=== PATIENT | female | born 1995 | race Caucasian/White ===

== ENCOUNTER 2021-01-01 07:55 | Inpatient (IN) ==
[2021-01-01] MEDS ORDERED: OXYTOCIN 30 UNITS/500 ML BAG IV PRN (08:14)
--- NOTE | 2021-01-01 08:24 | History & Physical Report ---
Date of Service January 01, 2021 Assessment & Plan (1) Pre-eclampsia during in third trimester, antepartum: Plan: 25-year-old G1, P0 with EDC of January 22, at 37 weeks of gestation with preeclampsia without severe features. Scheduled for induction of labor for above, Vital signs stable afebrile, heart rate reassuring, GBS negative, No Covid symptoms, Plan to admit, monitor, labs, cervical ripening with prostaglandins. I discussed the options of intravaginal Cervidil versus p.o. misoprostol. Patient had uncomfortable vaginal exam and prefers oral prostaglandin. Discussed what to expect during induction, All questions were answered. Admission and Anticipated Discharge Date Admission Date: January 01, 2021 History of Present Illness Chief Complaint: Induction Primary Care Provider: NO PCP Patient is a 25-year-old G1, P0 at 37 weeks of gestation who is being admitted for induction of labor for preeclampsia without severe features. Patient had elevated blood pressures and proteinuria which was documented by her 24-hour protein collection. Her blood work labs have been normal. She gets mild headaches off and on but relieved by Tylenol. She denies headache, change in vision, nausea vomiting, epigastric or right upper quadrant pain today. She denies contractions, leakage of fluid, vaginal bleeding. She reports good movements. Her has been otherwise uncomplicated. GBS negative. No Covid symptoms, no recent exposure as she is aware of. 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 She denies any medical problems, surgeries, allergies to medications. SHe takes Zoloft for history of anxiety. She denies smoking, alcohol or drug use. Allergies Allergy/AdvReac Type Severity Reaction Status Date / Time No Known Allergies Allergy Unverified 01/01/21 08:22 Patient History Surgical History [place] teeth removed [employer] History Denies any history of STDs, no history of genital herpes, chlamydia nor gonorrhea. Review of Systems as per Subjective / HPI Physical Exam Constitutional: well developed and well nourished Portable, not in acute distress. Genitourinary: normal external appearance OB Exam Abdomen: + vertex Manual OB Exam: + cervical dilation 1 cm (1-2 CM), + cervical effacement 50% and + station high OB Exam Monitor Tracing: + external uterine monitor used and + category I Results & Data ([facility]) Vital Signs (Past 12 Hours) Vital Signs Pulse BP 01/01/21 08:05 77 134/92 Code Status & VTE Plan VTE Prophylaxis Plan VTE Prophylaxis will be ordered: No
[2021-01-01] MEDS ORDERED: PATIENT'S ALLERGY INFO NEEDS ENTERED SCH (08:30)
[2021-01-01] MEDS ORDERED: miSOPROStoL 50 MCG TAB PO SCH ×2 (09:00→13:30)
[2021-01-01 09:14] LABS: Hematocrit (blood only) 32.8 % (37-47); Hemoglobin 10.9 g/dL (12.0-16.0); Mean Corpuscular Hemoglobin 29.4 pg (25-34); Mean Corpuscular Hgb Conc 33.2 g/dL (32-36); Mean Corpuscular Volume 88.4 fL (80-100); Mean Platelet Volume 11.1 fL (7.4-10.4); Nucleated RBC # (auto) 0.02 K/uL (0-0); Nucleated RBC % (auto) 0.2 %; Platelet Count 186 K/uL (130-400); RDW Coefficient of Variation 12.2 % (11.5-14.5); RDW Standard Deviation 39.1 fL (36.4-46.3); Red Blood Count 3.71 M/uL (4.2-5.4); White Blood Count 11.77 K/uL (4.8-10.8)
[2021-01-01 09:30] LABS: Albumin Level 2.2 gm/dl (3.4-5.0); BUN Creatinine Ratio 11.2 (10-20); Calcium 8.5 mg/dl (8.5-10.1); Creatinine Clr Calc Pharmacy 108.1 ml/min; Est GFR (African American) 118.9 ml/min; Est GFR (Non-African American) 102.6 ml/min; Potassium 3.8 mmol/L (3.5-5.1)
[2021-01-01 09:32] LABS: Albumin Globulin Ratio 0.6 (0.9-2); Bilirubin,Total 0.3 mg/dl (0.2-1); Globulin 3.8 gm/dl (2.5-4.0)
[2021-01-01] MEDS ORDERED: ONDANSETRON INJ 2 MG/ML 2 ML VIAL IV PRN (16:16)
[2021-01-01] MEDS ORDERED: BUTORPHANOL TARTRATE 1 MG/ML VIAL IV PRN (16:16)
--- NOTE | 2021-01-01 16:19 | Obstetrical Progress Note ---
Date of Service January 01, 2021 Assessment & Plan Admission and Anticipated Discharge Date Admission Date: January 01, 2021 Subjective Patient is reevaluated. She received 1 dose of Cytotec at 9:30 AM and started to have contractions. Second dose was not given due to frequent contractions on the monitor She has been feeling mild irregular contractions, back pain every 5 minutes or so. No leakage of fluid or bleeding and she reports good movements. She is hungry and she wants to eat dinner. She denies nausea or vomiting with contractions. heart rate category 1, toco with contractions every 2 to 7 minutes. Patient does not feel all of them. Cervix is 2 cm dilated, 50% is effaced, head at -3 station. Plan for diet and IV pain medication as needed and expectant management for now until contractions will space out. All questions were answered. Results & Data ([facility]) Vital Signs (Past 12 Hours) Vital Signs Temp Pulse Resp BP 01/01/21 14:34 36.8 C 69 20 157/84 H 01/01/21 11:52 36.8 C 65 20 143/86 H 01/01/21 08:11 36.8 C 77 20 134/92 01/01/21 08:05 36.8 C 77 20 134/92
[2021-01-01] MEDS ORDERED: DINOPROSTONE 10 MG INSERT PV ONE (18:31)
[2021-01-01] MEDS ORDERED: SODIUM CHLORIDE 0.9% INJ 10 ML VIAL ONE (23:30)
[2021-01-01] MEDS ORDERED: ePHEDrine sulfate 50 MG/ML AMP ONE (23:30)
[2021-01-01] MEDS ORDERED: fentaNYL citrate 100 MCG/2 ML VIAL ONE (23:30)
[2021-01-01] MEDS ORDERED: fentaNYL 2MCG/ML ROPIVACAINE 1.25MG/ML 100 ML BAG EPI ONE (23:30)
[2021-01-01] MEDS ORDERED: BUPIVACAINE 0.25% 30 ML VIAL ONE (23:30)
[2021-01-01] MEDS: LACTATED RINGER'S 1,000 ML IV PRN (23:37)
[2021-01-01] MEDS ORDERED: NALOXONE HCL 0.4 MG/1 ML VIAL/CARP IV PRN (23:41)
[2021-01-01] MEDS ORDERED: NALBUPHINE HCL INJ 10 MG/ML AMP IV PRN (23:41)
[2021-01-01] MEDS ORDERED: diphenhydrAMINE 50 MG/ML VIAL IV PRN (23:41)
[2021-01-01] MEDS ORDERED: NALOXONE HCL 1 MG in SODIUM CHLORIDE 0.9% 1000ML 1,000 ML IV PRN (23:41)
[2021-01-01] MEDS ORDERED: ePHEDrine sulfate 50 MG/ML AMP IV PRN (23:41)
--- NOTE | 2021-01-01 23:41 | Anesthesiology Consultation ---
Date of Service January 01, 2021 Assessment & Plan ASA ASA2 Proposed Anesthesia Anesthesia Type: Labor Epidural Risk / Benefits Reviewed With: PT / POA / Parent / Guardian, Accepts Plan and Informed Consent Obtained History Height/Weight Height: 5 ft 2 in Weight: 84.822 kg Allergies Allergy/AdvReac Type Severity Reaction Status Date / Time No Known Allergies Allergy Unverified 01/01/21 09:38 Medications Home Medications Medication Instructions Recorded Confirmed Last Taken prenat.vits,elizabeth,[id number] 1 tab PO DAILY 01/01/21 01/01/21 Unknown sertraline 50 mg tablet (Zoloft) 50 mg PO DAILY 01/01/21 01/01/21 01/01/21 07:00 Active Medications Generic Name Dose Route Start Last Admin Trade Name Freq PRN Reason Stop Dose Admin Lactated Ringer's 1,000 mls @ 125 mls/hr 01/01/21 08:14 01/01/21 23:37 Lr IV 01/03/21 08:13 999 mls/hr .Q8H PRN Administration L&D Protocol Protocol Misoprostol 50 mcg 01/01/21 13:30 01/01/21 16:55 Misoprostol 50 Mcg Tab PO 01/31/21 13:29 Not Given Q4H SELENA Ropivacaine 100 ml 01/01/21 23:41 01/02/21 00:10 Fentanyl 2mcg/Ml Ropivacaine 1.25mg/Ml 100 Ml Bag EPI 01/02/21 23:40 100 ml PRN PRN Administration Pain R/T Labor Protocol Exercise / Class Metabolic Activity II 4-5 Yardwork/Stairs/Walk up hill Past Surgical History Surgical History [place] teeth removed Past Anesthesia History No Hx of Anesthesia Complications and No Family Hx of Anesthesia Complications History of PONV No Hx of PONV and No Hx of Motion Sickness Social History Smoking Status: Never smoker Hx Alcohol Use: No Hx Substance Use: No Review of Systems denies fever/cough/ colds/ chest pain/ SOB/ JOHN denies JOHN Physical Exam Vital Signs Last Vital Signs Temp 36.4 C L 01/01/21 23:06 Pulse 75 01/02/21 00:12 Resp 18 01/01/21 23:06 BP 136/85 01/02/21 00:12 Pulse Ox 99 01/02/21 00:10 ENMT Mouth: no TMJ abnormality and no dentition abnormality Thyromental Distance: > or= 3.5 Finger Breadths Mallampati Class: II Neck neck extension not limited Respiratory normal respiratory effort; no respiratory distress Auscultation: lungs clear to auscultation bilaterally Cardiovascular Rate/Rhythm: regular rate and regular rhythm Neurologic moves all extremities Psychiatric Orientation: alert and oriented x 3 Testing Laboratory Results 01/01/21 08:57 01/01/21 08:57 Blood Type B Positive 01/01/21 08:57 Antibody Screen NEGATIVE 01/01/21 08:57
[2021-01-02] MEDS: fentaNYL 2MCG/ML ROPIVACAINE 1.25MG/ML 100 ML BAG EPI PRN ×4 (00:10→22:06)
[2021-01-02] MEDS: LACTATED RINGER'S 1,000 ML IV PRN ×5 (02:33→23:42)
[2021-01-02] MEDS ORDERED: NURSING L&D Epidural Breakthrough Pain Update ONE (05:11)
[2021-01-02] MEDS ORDERED: ePHEDrine sulfate 50 MG/ML AMP ONE (05:52)
[2021-01-02] MEDS ORDERED: SODIUM CHLORIDE 0.9% INJ 10 ML VIAL ONE ×2 (05:52→23:16)
[2021-01-02] MEDS ORDERED: fentaNYL citrate 100 MCG/2 ML VIAL ONE (05:53)
[2021-01-02] MEDS ORDERED: fentaNYL 2MCG/ML ROPIVACAINE 1.25MG/ML 100 ML BAG EPI ONE (05:53)
[2021-01-02] MEDS ORDERED: BUPIVACAINE 0.25% 30 ML VIAL ONE ×2 (05:53→23:16)
--- NOTE | 2021-01-02 06:25 | Communication Note ---
Date of Service: January 02, 2021 asked to reevaluate patient. patient diffusely painful, but initially had relief. pt early in process so decided to replace epidural. time out complete d. sterile prep/drape/gloves/mask. l3-l4 idenified. 1% lido infilrated. 17 gauge touey advanced to SADAF to air at 5 cm. easy caheter thread to 12 cm. test dose of 2% lido with epi 3 cc given. negative IV/IT. catheter taped. pt bolused with a divided dose of 100 mcg fentanyl and 5 cc of 0.25% bupivicaine. vss.
[2021-01-02] MEDS ORDERED: OXYTOCIN 30 UNITS/500 ML BAG IV PRN (07:45)
--- NOTE | 2021-01-02 08:01 | Obstetrical Progress Note ---
Date of Service January 02, 2021 Assessment & Plan Admission and Anticipated Discharge Date Admission Date: January 01, 2021 Subjective Patient is reevaluated. She received epidural twice and now comfortable. VSS Afebrile, VE: Cervidil is removed, cervix is 3 xm/ 50%/ -3, tight bulgin bag FHR categ I, [place]: ctxs q 2-5 min Will start Oxytocin per protocol Continue to monitor Signed out to Dr Mcghee Results & Data ([facility]) Vital Signs (Past 12 Hours) Vital Signs Temp Pulse Resp BP Pulse Ox 01/02/21 07:50 84 100 01/02/21 07:45 88 100 01/02/21 07:40 92 H 96 01/02/21 07:35 89 100 01/02/21 07:30 102 H 98 01/02/21 07:27 82 121/66 01/02/21 07:25 81 98 01/02/21 07:20 78 97 01/02/21 07:15 78 99 01/02/21 07:13 78 122/70 01/02/21 07:12 80 125/73 01/02/21 07:10 79 99 01/02/21 07:05 86 100 01/02/21 07:01 90 124/72 01/02/21 07:00 37.0 C 82 20 98 01/02/21 06:57 76 124/71 01/02/21 06:55 76 98 01/02/21 06:50 80 99 01/02/21 06:45 90 99 01/02/21 06:43 88 137/72 01/02/21 06:40 82 100 01/02/21 06:35 88 100 01/02/21 06:30 91 H 99 01/02/21 06:26 85 123/64 01/02/21 06:25 85 100 01/02/21 06:24 90 125/75 01/02/21 06:22 86 124/67 01/02/21 06:20 84 129/66 99 01/02/21 06:18 100 H 116/64 01/02/21 06:16 85 129/72 01/02/21 06:15 90 98 01/02/21 06:14 81 134/77 01/02/21 06:12 80 133/76 01/02/21 06:11 20 01/02/21 06:10 103 H 99 01/02/21 06:05 78 97 01/02/21 06:00 123 H 98 01/02/21 05:55 101 H 86 L 01/02/21 05:50 86 98 01/02/21 05:45 90 98 01/02/21 05:44 85 146/88 H 01/02/21 05:40 85 100 01/02/21 05:35 88 99 01/02/21 05:30 90 142/78 H 100 01/02/21 05:25 96 H 99 01/02/21 05:20 85 99 01/02/21 05:17 78 161/89 H 01/02/21 05:15 86 100 01/02/21 05:10 87 99 01/02/21 05:05 76 97 01/02/21 05:01 86 171/97 H 01/02/21 05:00 88 100 01/02/21 04:58 109 H 93 01/02/21 04:55 82 99 01/02/21 04:50 72 98 01/02/21 04:45 72 146/84 H 98 01/02/21 04:40 75 98 01/02/21 04:36 91 H 93 01/02/21 04:35 80 96 01/02/21 04:31 69 151/90 H 01/02/21 04:30 72 18 98 01/02/21 04:25 73 98 01/02/21 04:22 36.8 C 01/02/21 04:20 72 97 01/02/21 04:15 70 135/83 96 01/02/21 04:10 70 95 01/02/21 04:05 70 96 01/02/21 04:00 69 18 134/81 96 01/02/21 03:55 68 97 01/02/21 03:50 71 97 01/02/21 03:48 85 93 01/02/21 03:45 73 140/66 97 01/02/21 03:40 74 96 01/02/21 03:35 74 96 01/02/21 03:30 76 141/63 H 95 01/02/21 03:25 77 95 01/02/21 03:20 75 96 01/02/21 03:16 73 143/65 H 01/02/21 03:15 74 96 01/02/21 03:10 75 95 01/02/21 03:05 74 96 01/02/21 03:02 71 144/66 H 01/02/21 03:00 74 18 96 01/02/21 02:55 74 96 01/02/21 02:50 74 96 01/02/21 02:46 71 144/66 H 01/02/21 02:45 72 98 01/02/21 02:40 72 98 01/02/21 02:37 98 H 93 01/02/21 02:35 80 98 01/02/21 02:30 73 18 97 01/02/21 02:29 70 117/61 01/02/21 02:25 71 97 01/02/21 02:20 73 96 01/02/21 02:15 74 96 01/02/21 02:14 73 124/62 01/02/21 02:10 93 H 96 01/02/21 02:05 76 96 01/02/21 02:00 80 16 96 01/02/21 01:59 79 130/60 01/02/21 01:55 75 95 01/02/21 01:50 75 96 01/02/21 01:45 78 96 01/02/21 01:44 76 125/58 L 01/02/21 01:40 74 95 01/02/21 01:35 76 96 01/02/21 01:31 72 126/62 01/02/21 01:30 72 16 97 01/02/21 01:25 74 97 01/02/21 01:20 74 98 01/02/21 01:15 77 98 01/02/21 01:14 76 132/76 01/02/21 01:10 74 98 01/02/21 01:05 77 96 01/02/21 01:00 71 131/80 97 01/02/21 00:55 71 97 01/02/21 00:52 36.8 C 18 01/02/21 00:50 70 98 01/02/21 00:45 68 99 01/02/21 00:44 68 137/83 01/02/21 00:40 80 97 01/02/21 00:35 71 98 01/02/21 00:30 74 18 135/84 98 01/02/21 00:25 72 18 97 01/02/21 00:20 78 18 97 01/02/21 00:15 77 18 98 01/02/21 00:14 84 133/86 01/02/21 00:12 75 136/85 01/02/21 00:10 78 18 139/85 99 01/02/21 00:08 77 147/89 H 01/02/21 00:07 18 01/02/21 00:06 77 145/85 H 01/02/21 00:05 76 100 01/02/21 00:00 64 100 01/01/21 23:57 96 H 93 01/01/21 23:55 82 100 01/01/21 23:50 78 99 01/01/21 23:45 68 97 01/01/21 23:16 67 145/85 H 01/01/21 23:06 36.4 C L 18 01/01/21 22:59 66 160/98 H
--- NOTE | 2021-01-02 10:22 | Progress Note ---
Date of Service January 02, 2021 Assessment & Plan Admission and Anticipated Discharge Date Admission Date: January 01, 2021 Subjective Met pt and spouse FHR; CAT1 Pt was seen by Dr Suárez and nicole Navas Results & Data ([facility]) Vital Signs (Past 12 Hours) Vital Signs Temp Pulse Resp BP Pulse Ox 01/02/21 10:15 78 96 01/02/21 10:12 77 139/80 01/02/21 10:10 80 95 01/02/21 10:05 81 97 01/02/21 10:01 94 H 94 01/02/21 10:00 78 96 01/02/21 09:57 81 141/81 H 01/02/21 09:55 82 96 01/02/21 09:50 95 H 97 01/02/21 09:45 79 96 01/02/21 09:42 80 133/80 01/02/21 09:40 80 97 01/02/21 09:35 78 97 01/02/21 09:30 93 H 97 01/02/21 09:27 78 136/84 01/02/21 09:25 85 97 01/02/21 09:20 81 97 01/02/21 09:15 79 97 01/02/21 09:13 82 134/79 01/02/21 09:10 82 98 01/02/21 09:05 84 99 01/02/21 09:00 75 20 97 01/02/21 08:57 78 135/83 01/02/21 08:55 77 97 01/02/21 08:50 77 98 01/02/21 08:45 78 98 01/02/21 08:43 73 145/83 H 01/02/21 08:40 79 99 01/02/21 08:35 86 100 01/02/21 08:30 94 H 100 01/02/21 08:28 90 139/87 01/02/21 08:25 93 H 99 01/02/21 08:20 87 99 01/02/21 08:15 96 H 100 01/02/21 08:12 85 130/83 01/02/21 08:10 82 99 01/02/21 08:05 82 100 01/02/21 08:00 77 18 99 01/02/21 07:58 83 137/78 01/02/21 07:55 88 100 01/02/21 07:50 84 100 01/02/21 07:45 88 100 01/02/21 07:40 92 H 96 01/02/21 07:35 89 100 01/02/21 07:30 102 H 20 98 01/02/21 07:27 82 121/66 01/02/21 07:25 81 98 01/02/21 07:20 78 97 01/02/21 07:15 78 99 01/02/21 07:13 78 122/70 01/02/21 07:12 80 125/73 01/02/21 07:10 79 99 01/02/21 07:05 86 100 01/02/21 07:01 90 124/72 01/02/21 07:00 37.0 C 82 20 98 01/02/21 06:57 76 124/71 01/02/21 06:55 76 98 01/02/21 06:50 80 99 01/02/21 06:45 90 99 01/02/21 06:43 88 137/72 01/02/21 06:40 82 100 01/02/21 06:35 88 100 01/02/21 06:30 91 H 99 01/02/21 06:26 85 123/64 01/02/21 06:25 85 100 01/02/21 06:24 90 125/75 01/02/21 06:22 86 124/67 01/02/21 06:20 84 129/66 99 01/02/21 06:18 100 H 116/64 01/02/21 06:16 85 129/72 01/02/21 06:15 90 98 01/02/21 06:14 81 134/77 01/02/21 06:12 80 133/76 01/02/21 06:11 20 01/02/21 06:10 103 H 99 01/02/21 06:05 78 97 01/02/21 06:00 123 H 98 01/02/21 05:55 101 H 86 L 01/02/21 05:50 86 98 01/02/21 05:45 90 98 01/02/21 05:44 85 146/88 H 01/02/21 05:40 85 100 01/02/21 05:35 88 99 01/02/21 05:30 90 142/78 H 100 01/02/21 05:25 96 H 99 01/02/21 05:20 85 99 01/02/21 05:17 78 161/89 H 01/02/21 05:15 86 100 01/02/21 05:10 87 99 01/02/21 05:05 76 97 01/02/21 05:01 86 171/97 H 01/02/21 05:00 88 100 01/02/21 04:58 109 H 93 01/02/21 04:55 82 99 01/02/21 04:50 72 98 01/02/21 04:45 72 146/84 H 98 01/02/21 04:40 75 98 01/02/21 04:36 91 H 93 01/02/21 04:35 80 96 01/02/21 04:31 69 151/90 H 01/02/21 04:30 72 18 98 01/02/21 04:25 73 98 01/02/21 04:22 36.8 C 01/02/21 04:20 72 97 01/02/21 04:15 70 135/83 96 01/02/21 04:10 70 95 01/02/21 04:05 70 96 01/02/21 04:00 69 18 134/81 96 01/02/21 03:55 68 97 01/02/21 03:50 71 97 01/02/21 03:48 85 93 01/02/21 03:45 73 140/66 97 01/02/21 03:40 74 96 01/02/21 03:35 74 96 01/02/21 03:30 76 141/63 H 95 01/02/21 03:25 77 95 01/02/21 03:20 75 96 01/02/21 03:16 73 143/65 H 01/02/21 03:15 74 96 01/02/21 03:10 75 95 01/02/21 03:05 74 96 01/02/21 03:02 71 144/66 H 01/02/21 03:00 74 18 96 01/02/21 02:55 74 96 01/02/21 02:50 74 96 01/02/21 02:46 71 144/66 H 01/02/21 02:45 72 98 01/02/21 02:40 72 98 01/02/21 02:37 98 H 93 01/02/21 02:35 80 98 01/02/21 02:30 73 18 97 01/02/21 02:29 70 117/61 01/02/21 02:25 71 97 01/02/21 02:20 73 96 01/02/21 02:15 74 96 01/02/21 02:14 73 124/62 01/02/21 02:10 93 H 96 01/02/21 02:05 76 96 01/02/21 02:00 80 16 96 01/02/21 01:59 79 130/60 01/02/21 01:55 75 95 01/02/21 01:50 75 96 01/02/21 01:45 78 96 01/02/21 01:44 76 125/58 L 01/02/21 01:40 74 95 01/02/21 01:35 76 96 01/02/21 01:31 72 126/62 01/02/21 01:30 72 16 97 01/02/21 01:25 74 97 01/02/21 01:20 74 98 01/02/21 01:15 77 98 01/02/21 01:14 76 132/76 01/02/21 01:10 74 98 01/02/21 01:05 77 96 01/02/21 01:00 71 131/80 97 01/02/21 00:55 71 97 01/02/21 00:52 36.8 C 18 01/02/21 00:50 70 98 01/02/21 00:45 68 99 01/02/21 00:44 68 137/83 01/02/21 00:40 80 97 01/02/21 00:35 71 98 01/02/21 00:30 74 18 135/84 98 01/02/21 00:25 72 18 97 01/02/21 00:20 78 18 97 01/02/21 00:15 77 18 98 01/02/21 00:14 84 133/86 01/02/21 00:12 75 136/85 01/02/21 00:10 78 18 139/85 99 01/02/21 00:08 77 147/89 H 01/02/21 00:07 18 01/02/21 00:06 77 145/85 H 01/02/21 00:05 76 100 01/02/21 00:00 64 100 01/01/21 23:57 96 H 93 01/01/21 23:55 82 100 01/01/21 23:50 78 99 01/01/21 23:45 68 97 01/01/21 23:16 67 145/85 H 01/01/21 23:06 36.4 C L 18 01/01/21 22:59 66 160/98 H
[2021-01-02] MEDS ORDERED: ACETAMINOPHEN 500 MG TAB PO ONE (16:09)
--- NOTE | 2021-01-02 18:59 | Progress Note ---
Date of Service January 02, 2021 Assessment & Plan Admission and Anticipated Discharge Date Admission Date: January 01, 2021 Subjective Pt doing well FHR; CAT1 Ctx irregular Pit. 4Mu VE 4/50.-2 AROM with scalp electrode IUPC placed Results [facility]) Vital Signs (Past 12 Hours) Vital Signs Temp Pulse Resp BP Pulse Ox 01/02/21 18:55 80 96 01/02/21 18:50 87 96 01/02/21 18:45 93 H 95 01/02/21 18:40 96 H 95 01/02/21 18:35 100 H 95 01/02/21 18:30 78 94 01/02/21 18:27 76 122/63 01/02/21 18:25 77 95 01/02/21 18:20 77 96 01/02/21 18:15 79 94 01/02/21 18:12 83 121/62 01/02/21 18:10 78 95 01/02/21 18:05 78 94 01/02/21 18:00 80 95 01/02/21 17:57 75 121/62 01/02/21 17:55 79 94 01/02/21 17:50 80 94 01/02/21 17:45 79 94 01/02/21 17:42 77 123/66 01/02/21 17:40 78 95 01/02/21 17:35 79 94 01/02/21 17:30 76 20 95 01/02/21 17:27 75 124/68 01/02/21 17:25 77 95 01/02/21 17:20 76 96 01/02/21 17:15 76 96 01/02/21 17:12 74 128/70 01/02/21 17:10 81 96 01/02/21 17:05 73 96 01/02/21 17:00 75 20 96 01/02/21 16:57 71 134/74 01/02/21 16:55 76 96 01/02/21 16:50 69 97 01/02/21 16:45 88 99 01/02/21 16:42 75 137/83 01/02/21 16:40 79 98 01/02/21 16:35 83 97 01/02/21 16:30 87 20 95 01/02/21 16:27 73 145/82 H 01/02/21 16:25 83 98 01/02/21 16:20 75 99 01/02/21 16:15 80 99 01/02/21 16:12 82 154/81 H 01/02/21 16:11 88 88 L 01/02/21 16:10 85 93 01/02/21 16:05 77 159/91 H 97 01/02/21 16:00 86 20 99 01/02/21 15:58 72 167/93 H 01/02/21 15:55 73 97 01/02/21 15:50 76 97 01/02/21 15:45 80 97 01/02/21 15:42 73 149/84 H 01/02/21 15:40 83 97 01/02/21 15:35 76 97 01/02/21 15:30 78 18 98 01/02/21 15:25 96 H 95 01/02/21 15:20 79 98 01/02/21 15:15 97 H 97 01/02/21 15:12 73 142/65 H 01/02/21 15:10 76 96 01/02/21 15:05 74 96 01/02/21 15:00 74 20 96 01/02/21 14:57 74 142/65 H 01/02/21 14:55 75 96 01/02/21 14:50 74 96 01/02/21 14:45 75 96 01/02/21 14:42 74 148/67 H 01/02/21 14:40 75 95 01/02/21 14:35 75 96 01/02/21 14:30 75 20 97 01/02/21 14:28 80 150/67 H 01/02/21 14:25 80 97 01/02/21 14:20 77 96 01/02/21 14:15 84 98 01/02/21 14:13 76 151/67 H 01/02/21 14:10 78 97 01/02/21 14:05 90 18 98 01/02/21 14:00 75 18 96 01/02/21 13:57 77 133/75 01/02/21 13:55 79 97 01/02/21 13:50 80 96 01/02/21 13:45 77 96 01/02/21 13:42 75 132/73 01/02/21 13:40 77 95 01/02/21 13:35 77 94 01/02/21 13:34 79 94 01/02/21 13:30 78 95 01/02/21 13:27 75 127/71 01/02/21 13:25 80 95 01/02/21 13:23 78 94 01/02/21 13:20 77 95 01/02/21 13:15 76 96 01/02/21 13:13 75 130/73 01/02/21 13:10 78 96 01/02/21 13:05 75 97 01/02/21 13:00 76 20 96 01/02/21 12:58 76 133/69 01/02/21 12:55 77 97 01/02/21 12:50 78 97 01/02/21 12:45 78 97 01/02/21 12:42 83 144/93 H 01/02/21 12:40 80 98 01/02/21 12:35 74 98 01/02/21 12:30 75 98 01/02/21 12:27 75 144/83 H 01/02/21 12:25 83 98 01/02/21 12:20 87 98 01/02/21 12:15 98 H 99 01/02/21 12:12 169 H 146/83 H 89 L 01/02/21 12:10 95 H 98 01/02/21 12:05 91 H 98 01/02/21 12:00 94 H 98 01/02/21 11:55 90 97 01/02/21 11:50 80 98 01/02/21 11:45 83 98 01/02/21 11:42 79 140/80 01/02/21 11:40 81 98 01/02/21 11:35 76 96 01/02/21 11:30 89 96 01/02/21 11:27 76 129/72 01/02/21 11:25 77 97 01/02/21 11:20 94 H 97 01/02/21 11:15 76 96 01/02/21 11:12 79 124/66 01/02/21 11:10 80 96 01/02/21 11:05 80 97 01/02/21 11:00 36.9 C 90 20 97 01/02/21 10:58 84 136/92 01/02/21 10:55 81 96 01/02/21 10:50 80 95 01/02/21 10:45 83 95 01/02/21 10:42 78 141/73 H 01/02/21 10:40 82 95 01/02/21 10:36 82 94 01/02/21 10:35 82 95 01/02/21 10:30 81 95 01/02/21 10:29 79 94 01/02/21 10:27 78 139/73 01/02/21 10:25 81 95 01/02/21 10:24 79 94 01/02/21 10:20 81 95 01/02/21 10:15 78 96 01/02/21 10:12 77 139/80 01/02/21 10:10 80 95 01/02/21 10:05 81 97 01/02/21 10:01 94 H 94 01/02/21 10:00 78 96 01/02/21 09:57 81 141/81 H 01/02/21 09:55 82 96 01/02/21 09:50 95 H 97 01/02/21 09:45 79 96 01/02/21 09:42 80 133/80 01/02/21 09:40 80 97 01/02/21 09:35 78 97 01/02/21 09:30 93 H 97 01/02/21 09:27 78 136/84 01/02/21 09:25 85 97 01/02/21 09:20 81 97 01/02/21 09:15 79 97 01/02/21 09:13 82 134/79 01/02/21 09:10 82 98 01/02/21 09:05 84 99 01/02/21 09:00 75 20 97 01/02/21 08:57 78 135/83 01/02/21 08:55 77 97 01/02/21 08:50 77 98 01/02/21 08:45 78 98 01/02/21 08:43 73 145/83 H 01/02/21 08:40 79 99 01/02/21 08:35 86 100 01/02/21 08:30 94 H 100 01/02/21 08:28 90 139/87 01/02/21 08:25 93 H 99 01/02/21 08:20 87 99 01/02/21 08:15 96 H 100 01/02/21 08:12 85 130/83 01/02/21 08:10 82 99 01/02/21 08:05 82 100 01/02/21 08:00 77 18 99 01/02/21 07:58 83 137/78 01/02/21 07:55 88 100 01/02/21 07:50 84 100 01/02/21 07:45 88 100 01/02/21 07:40 92 H 96 01/02/21 07:35 89 100 01/02/21 07:30 102 H 20 98 01/02/21 07:27 82 121/66 01/02/21 07:25 81 98 01/02/21 07:20 78 97 01/02/21 07:15 78 99 01/02/21 07:13 78 122/70 01/02/21 07:12 80 125/73 01/02/21 07:10 79 99 01/02/21 07:05 86 100 01/02/21 07:01 90 124/72 01/02/21 07:00 37.0 C 82 20 98
[2021-01-02] MEDS ORDERED: fentaNYL 2MCG/ML ROPIVACAINE 1.25MG/ML 100 ML BAG EPI PRN (23:34)
--- NOTE | 2021-01-03 00:08 | Progress Note ---
Date of Service January 03, 2021 Assessment & Plan Admission and Anticipated Discharge Date Admission Date: January 01, 2021 Subjective FHR; CAT1 VE; 8/75/-1 Ctx 2-3cm Pitocin ; 8mu Analgesia dosing adjsuted BP was in 160/90's. last BP was 140/80 will continue to monitor BP Results & Data ([facility]) Vital Signs (Past 12 Hours) Vital Signs Temp Pulse Resp BP Pulse Ox 01/03/21 00:00 83 94 01/02/21 23:55 88 95 01/02/21 23:53 93 H 140/87 01/02/21 23:50 96 H 97 01/02/21 23:47 76 161/92 H 01/02/21 23:45 80 94 01/02/21 23:42 85 160/109 H 01/02/21 23:40 79 95 01/02/21 23:38 76 159/92 H 01/02/21 23:35 79 95 01/02/21 23:32 78 152/95 H 01/02/21 23:30 81 98 01/02/21 23:27 83 171/97 H 01/02/21 23:25 86 162/82 H 96 01/02/21 23:20 100 H 95 01/02/21 23:15 91 H 97 01/02/21 23:13 88 177/87 H 01/02/21 23:10 82 95 01/02/21 23:05 92 H 97 01/02/21 23:00 86 98 01/02/21 22:59 37.2 C 20 01/02/21 22:55 86 96 01/02/21 22:50 89 96 01/02/21 22:45 89 97 01/02/21 22:40 79 98 01/02/21 22:35 91 H 95 01/02/21 22:30 88 98 01/02/21 22:27 85 161/94 H 01/02/21 22:25 88 98 01/02/21 22:20 85 97 01/02/21 22:15 88 98 01/02/21 22:12 78 168/94 H 01/02/21 22:10 94 H 98 01/02/21 22:08 16 01/02/21 22:05 84 98 01/02/21 22:00 107 H 98 01/02/21 21:55 82 96 01/02/21 21:50 89 99 01/02/21 21:45 80 98 01/02/21 21:40 81 99 01/02/21 21:35 91 H 98 01/02/21 21:30 79 98 01/02/21 21:27 79 138/76 01/02/21 21:25 76 98 01/02/21 21:20 75 98 01/02/21 21:15 74 98 01/02/21 21:12 75 143/81 H 01/02/21 21:10 79 97 01/02/21 21:05 88 97 01/02/21 21:00 77 97 01/02/21 20:59 36.8 C 76 18 143/83 H 01/02/21 20:55 84 96 01/02/21 20:50 78 97 01/02/21 20:45 75 97 01/02/21 20:44 76 144/86 H 01/02/21 20:42 75 144/87 H 01/02/21 20:40 74 98 01/02/21 20:35 89 96 01/02/21 20:34 18 01/02/21 20:30 88 97 01/02/21 20:27 77 156/94 H 01/02/21 20:25 86 97 01/02/21 20:20 78 97 01/02/21 20:15 80 97 01/02/21 20:12 103 H 139/95 01/02/21 20:10 106 H 96 01/02/21 20:05 101 H 96 01/02/21 20:00 84 97 01/02/21 19:57 88 148/98 H 01/02/21 19:55 83 96 01/02/21 19:50 80 96 01/02/21 19:45 80 95 01/02/21 19:43 76 137/76 01/02/21 19:40 77 96 01/02/21 19:35 77 97 01/02/21 19:30 73 95 01/02/21 19:28 75 141/77 H 01/02/21 19:25 85 96 01/02/21 19:20 81 96 01/02/21 19:19 37.2 C 18 01/02/21 19:15 78 94 01/02/21 19:13 81 150/90 H 01/02/21 19:10 76 94 01/02/21 19:05 80 95 01/02/21 19:00 91 H 18 94 01/02/21 18:58 80 139/87 01/02/21 18:55 80 96 01/02/21 18:50 87 96 01/02/21 18:45 93 H 95 01/02/21 18:40 96 H 95 01/02/21 18:35 100 H 95 01/02/21 18:30 78 18 94 01/02/21 18:27 76 122/63 01/02/21 18:25 77 95 01/02/21 18:20 77 96 01/02/21 18:15 79 94 01/02/21 18:12 83 121/62 01/02/21 18:10 78 95 01/02/21 18:05 78 94 01/02/21 18:00 80 16 95 01/02/21 17:57 75 121/62 01/02/21 17:55 79 94 01/02/21 17:50 80 94 01/02/21 17:45 79 94 01/02/21 17:42 77 123/66 01/02/21 17:40 78 95 01/02/21 17:35 79 94 01/02/21 17:30 76 20 95 01/02/21 17:27 75 124/68 01/02/21 17:25 77 95 01/02/21 17:20 76 96 01/02/21 17:15 76 96 01/02/21 17:12 74 128/70 01/02/21 17:10 81 96 01/02/21 17:05 73 96 01/02/21 17:00 75 20 96 01/02/21 16:57 71 134/74 01/02/21 16:55 76 96 01/02/21 16:50 69 97 01/02/21 16:45 88 99 01/02/21 16:42 75 137/83 01/02/21 16:40 79 98 01/02/21 16:35 83 97 01/02/21 16:30 87 20 95 01/02/21 16:27 73 145/82 H 01/02/21 16:25 83 98 01/02/21 16:20 75 99 01/02/21 16:15 80 99 01/02/21 16:12 82 154/81 H 01/02/21 16:11 88 88 L 01/02/21 16:10 85 93 01/02/21 16:05 77 159/91 H 97 01/02/21 16:00 86 20 99 01/02/21 15:58 72 167/93 H 01/02/21 15:55 73 97 01/02/21 15:50 76 97 01/02/21 15:45 80 97 01/02/21 15:42 73 149/84 H 01/02/21 15:40 83 97 01/02/21 15:35 76 97 01/02/21 15:30 78 18 98 01/02/21 15:25 96 H 95 01/02/21 15:20 79 98 01/02/21 15:15 97 H 97 01/02/21 15:12 73 142/65 H 01/02/21 15:10 76 96 01/02/21 15:05 74 96 01/02/21 15:00 74 20 96 01/02/21 14:57 74 142/65 H 01/02/21 14:55 75 96 01/02/21 14:50 74 96 01/02/21 14:45 75 96 01/02/21 14:42 74 148/67 H 01/02/21 14:40 75 95 01/02/21 14:35 75 96 01/02/21 14:30 75 20 97 01/02/21 14:28 80 150/67 H 01/02/21 14:25 80 97 01/02/21 14:20 77 96 01/02/21 14:15 84 98 01/02/21 14:13 76 151/67 H 01/02/21 14:10 78 97 01/02/21 14:05 90 18 98 01/02/21 14:00 75 18 96 01/02/21 13:57 77 133/75 01/02/21 13:55 79 97 01/02/21 13:50 80 96 01/02/21 13:45 77 96 01/02/21 13:42 75 132/73 01/02/21 13:40 77 95 01/02/21 13:35 77 94 01/02/21 13:34 79 94 01/02/21 13:30 78 95 01/02/21 13:27 75 127/71 01/02/21 13:25 80 95 01/02/21 13:23 78 94 01/02/21 13:20 77 95 01/02/21 13:15 76 96 01/02/21 13:13 75 130/73 01/02/21 13:10 78 96 01/02/21 13:05 75 97 01/02/21 13:00 76 20 96 01/02/21 12:58 76 133/69 01/02/21 12:55 77 97 01/02/21 12:50 78 97 01/02/21 12:45 78 97 01/02/21 12:42 83 144/93 H 01/02/21 12:40 80 98 01/02/21 12:35 74 98 01/02/21 12:30 75 98 01/02/21 12:27 75 144/83 H 01/02/21 12:25 83 98 01/02/21 12:20 87 98 01/02/21 12:15 98 H 99 01/02/21 12:12 169 H 146/83 H 89 L 01/02/21 12:10 95 H 98
[2021-01-03] MEDS ORDERED: GENTAMICIN CONSULT ACTIVE PRN (01:00)
[2021-01-03] MEDS ORDERED: LACTATED RINGER'S 500 ML IV ONE (01:05)
--- NOTE | 2021-01-03 01:09 | Progress Note ---
Date of Service January 03, 2021 Assessment & Plan Admission and Anticipated Discharge Date Admission Date: January 01, 2021 Subjective Nurse report Temp 101 FHR; 160's Plan IV bolus Amp and Gent started Results & Data ([facility]) Vital Signs (Past 12 Hours) Vital Signs Temp Pulse Resp BP Pulse Ox 01/03/21 01:05 91 H 96 01/03/21 01:00 104 H 94 01/03/21 00:55 90 98 01/03/21 00:50 38.4 C H 96 H 18 98 01/03/21 00:45 91 H 95 01/03/21 00:41 82 150/70 H 01/03/21 00:40 89 96 01/03/21 00:35 85 97 01/03/21 00:30 83 149/69 H 97 01/03/21 00:25 95 H 96 01/03/21 00:20 81 94 01/03/21 00:15 86 95 01/03/21 00:12 89 149/83 H 01/03/21 00:10 80 94 01/03/21 00:05 91 H 95 01/03/21 00:00 83 94 01/02/21 23:55 88 95 01/02/21 23:53 93 H 140/87 01/02/21 23:50 96 H 97 01/02/21 23:47 76 161/92 H 01/02/21 23:45 80 94 01/02/21 23:42 85 160/109 H 01/02/21 23:40 79 95 01/02/21 23:38 76 159/92 H 01/02/21 23:35 79 95 01/02/21 23:32 78 152/95 H 01/02/21 23:30 81 98 01/02/21 23:27 83 171/97 H 01/02/21 23:25 86 162/82 H 96 01/02/21 23:20 100 H 95 01/02/21 23:15 91 H 97 01/02/21 23:13 88 177/87 H 01/02/21 23:10 82 95 01/02/21 23:05 92 H 97 01/02/21 23:00 86 98 01/02/21 22:59 37.2 C 20 01/02/21 22:55 86 96 01/02/21 22:50 89 96 01/02/21 22:45 89 97 01/02/21 22:40 79 98 01/02/21 22:35 91 H 95 01/02/21 22:30 88 98 01/02/21 22:27 85 161/94 H 01/02/21 22:25 88 98 01/02/21 22:20 85 97 01/02/21 22:15 88 98 01/02/21 22:12 78 168/94 H 01/02/21 22:10 94 H 98 01/02/21 22:08 16 01/02/21 22:05 84 98 01/02/21 22:00 107 H 98 01/02/21 21:55 82 96 01/02/21 21:50 89 99 01/02/21 21:45 80 98 01/02/21 21:40 81 99 01/02/21 21:35 91 H 98 01/02/21 21:30 79 98 01/02/21 21:27 79 138/76 01/02/21 21:25 76 98 01/02/21 21:20 75 98 01/02/21 21:15 74 98 01/02/21 21:12 75 143/81 H 01/02/21 21:10 79 97 01/02/21 21:05 88 97 01/02/21 21:00 77 97 01/02/21 20:59 36.8 C 76 18 143/83 H 01/02/21 20:55 84 96 01/02/21 20:50 78 97 01/02/21 20:45 75 97 01/02/21 20:44 76 144/86 H 01/02/21 20:42 75 144/87 H 01/02/21 20:40 74 98 01/02/21 20:35 89 96 01/02/21 20:34 18 01/02/21 20:30 88 97 01/02/21 20:27 77 156/94 H 01/02/21 20:25 86 97 01/02/21 20:20 78 97 01/02/21 20:15 80 97 01/02/21 20:12 103 H 139/95 01/02/21 20:10 106 H 96 01/02/21 20:05 101 H 96 01/02/21 20:00 84 97 01/02/21 19:57 88 148/98 H 01/02/21 19:55 83 96 01/02/21 19:50 80 96 01/02/21 19:45 80 95 01/02/21 19:43 76 137/76 01/02/21 19:40 77 96 01/02/21 19:35 77 97 01/02/21 19:30 73 95 01/02/21 19:28 75 141/77 H 01/02/21 19:25 85 96 01/02/21 19:20 81 96 01/02/21 19:19 37.2 C 18 01/02/21 19:15 78 94 01/02/21 19:13 81 150/90 H 01/02/21 19:10 76 94 01/02/21 19:05 80 95 01/02/21 19:00 91 H 18 94 01/02/21 18:58 80 139/87 01/02/21 18:55 80 96 01/02/21 18:50 87 96 01/02/21 18:45 93 H 95 01/02/21 18:40 96 H 95 01/02/21 18:35 100 H 95 01/02/21 18:30 78 18 94 01/02/21 18:27 76 122/63 01/02/21 18:25 77 95 01/02/21 18:20 77 96 01/02/21 18:15 79 94 01/02/21 18:12 83 121/62 01/02/21 18:10 78 95 01/02/21 18:05 78 94 01/02/21 18:00 80 16 95 01/02/21 17:57 75 121/62 01/02/21 17:55 79 94 01/02/21 17:50 80 94 01/02/21 17:45 79 94 01/02/21 17:42 77 123/66 01/02/21 17:40 78 95 01/02/21 17:35 79 94 01/02/21 17:30 76 20 95 01/02/21 17:27 75 124/68 01/02/21 17:25 77 95 01/02/21 17:20 76 96 01/02/21 17:15 76 96 01/02/21 17:12 74 128/70 01/02/21 17:10 81 96 01/02/21 17:05 73 96 01/02/21 17:00 75 20 96 01/02/21 16:57 71 134/74 01/02/21 16:55 76 96 01/02/21 16:50 69 97 01/02/21 16:45 88 99 01/02/21 16:42 75 137/83 01/02/21 16:40 79 98 01/02/21 16:35 83 97 01/02/21 16:30 87 20 95 01/02/21 16:27 73 145/82 H 01/02/21 16:25 83 98 01/02/21 16:20 75 99 01/02/21 16:15 80 99 01/02/21 16:12 82 154/81 H 01/02/21 16:11 88 88 L 01/02/21 16:10 85 93 01/02/21 16:05 77 159/91 H 97 01/02/21 16:00 86 20 99 01/02/21 15:58 72 167/93 H 01/02/21 15:55 73 97 01/02/21 15:50 76 97 01/02/21 15:45 80 97 01/02/21 15:42 73 149/84 H 01/02/21 15:40 83 97 01/02/21 15:35 76 97 01/02/21 15:30 78 18 98 01/02/21 15:25 96 H 95 01/02/21 15:20 79 98 01/02/21 15:15 97 H 97 01/02/21 15:12 73 142/65 H 01/02/21 15:10 76 96 01/02/21 15:05 74 96 01/02/21 15:00 74 20 96 01/02/21 14:57 74 142/65 H 01/02/21 14:55 75 96 01/02/21 14:50 74 96 01/02/21 14:45 75 96 01/02/21 14:42 74 148/67 H 01/02/21 14:40 75 95 01/02/21 14:35 75 96 01/02/21 14:30 75 20 97 01/02/21 14:28 80 150/67 H 01/02/21 14:25 80 97 01/02/21 14:20 77 96 01/02/21 14:15 84 98 01/02/21 14:13 76 151/67 H 01/02/21 14:10 78 97 01/02/21 14:05 90 18 98 01/02/21 14:00 75 18 96 01/02/21 13:57 77 133/75 01/02/21 13:55 79 97 01/02/21 13:50 80 96 01/02/21 13:45 77 96 01/02/21 13:42 75 132/73 01/02/21 13:40 77 95 01/02/21 13:35 77 94 01/02/21 13:34 79 94 01/02/21 13:30 78 95 01/02/21 13:27 75 127/71 01/02/21 13:25 80 95 01/02/21 13:23 78 94 01/02/21 13:20 77 95 01/02/21 13:15 76 96 01/02/21 13:13 75 130/73 01/02/21 13:10 78 96
[2021-01-03] MEDS ORDERED: GENTAMICIN SULFATE 320 MG in DEXTROSE 5% 100 ML IV SCH (01:15)
[2021-01-03] MEDS: AMPICILLIN 2,000 MG in SODIUM CHLOR 0.9% AD-VAN 100 ML IV SCH ×4 (01:28→19:47)
[2021-01-03] MEDS: GENTAMICIN SULFATE 420 MG in DEXTROSE 5% 100 ML IV SCH (02:04)
[2021-01-03] MEDS ORDERED: LACTATED RINGER'S 1,000 ML IV SCH ×2 (03:00→05:15)
[2021-01-03] MEDS ORDERED: ceFAZolin 2000MG 2,000 MG/15 ML SYR IV SCH (03:15)
[2021-01-03] MEDS ORDERED: CITRIC ACID/SODIUM CITRATE 15 ML UDC ONE (03:20)
[2021-01-03] MEDS ORDERED: LIDOCAINE 2%/EPINEPHRINE 1:200,000 20 ML SDV ONE ×2 (03:28→03:41)
[2021-01-03] MEDS ORDERED: fentaNYL citrate 100 MCG/2 ML VIAL ONE (03:37)
[2021-01-03] MEDS ORDERED: OXYTOCIN 10 UNITS/ML VIAL ONE ×3 (03:50→04:10)
[2021-01-03] MEDS ORDERED: MoRPHine SULFATE PF 1 MG/ML 10 ML AMP/VIAL ONE (03:51)
[2021-01-03] MEDS ORDERED: MoRPHine SULFATE PF 1 MG/ML 10 ML AMP/VIAL EPI ONE (04:03)
[2021-01-03] MEDS ORDERED: NALOXONE HCL 1 MG in SODIUM CHLORIDE 0.9% 1000ML 1,000 ML IV PRN (04:03)
[2021-01-03] MEDS ORDERED: ePHEDrine sulfate 50 MG/ML AMP IV PRN (04:03)
[2021-01-03] MEDS ORDERED: LACTATED RINGER'S 500 ML IV PRN (04:03)
[2021-01-03] MEDS ORDERED: NALOXONE HCL 0.08 MG in SYRINGE 1.8 ML IV PRN (04:03)
[2021-01-03] MEDS ORDERED: diphenhydrAMINE 50 MG/ML VIAL IV PRN ×2 (04:03→22:03)
[2021-01-03] MEDS ORDERED: NALOXONE HCL 0.4 MG/1 ML VIAL/CARP IV PRN (04:03)
[2021-01-03] MEDS ORDERED: HYDROmorphone INJ 0.5 MG/0.5 ML SYR IV PRN (04:03)
[2021-01-03] MEDS ORDERED: NALBUPHINE HCL INJ 10 MG/ML AMP IV PRN (04:03)
[2021-01-03] MEDS ORDERED: ONDANSETRON INJ 2 MG/ML 2 ML VIAL IV PRN ×2 (04:03→22:03)
[2021-01-03] MEDS ORDERED: DC INTRASPINAL MORPHINE SCH (04:15)
[2021-01-03] MEDS ORDERED: NO NARCOTICS OR SEDATIVES SCH (04:15)
[2021-01-03] MEDS ORDERED: SODIUM CHLORIDE 0.9% 1000ML 1,000 ML IV SCH (04:15)
[2021-01-03] MEDS ORDERED: OXYTOCIN 10 UNITS/ML VIAL IM ONE (04:21)
[2021-01-03] MEDS ORDERED: ONDANSETRON INJ 2 MG/ML 2 ML VIAL ONE (04:30)
[2021-01-03] MEDS ORDERED: PHENYLEPHRINE 100MCG/ML 5ML SYR ONE (04:30)
[2021-01-03] MEDS ORDERED: miSOPROStoL 200 MCG TAB ONE (04:55)
[2021-01-03] MEDS ORDERED: SUPERCREAM 0.870% 15 GM JAR EXT PRN (05:09)
[2021-01-03] MEDS ORDERED: MAGNESIUM HYDROXIDE SUSP 30 ML UDC PO PRN (05:09)
[2021-01-03] MEDS ORDERED: DIPHTHERIA/TETANUS/PERTUSSIS 0.5 ML SYR/VIAL IM ONE (05:09)
[2021-01-03] MEDS ORDERED: HYDROCORTISONE ACETATE 25 MG SUPP PR PRN (05:09)
[2021-01-03] MEDS ORDERED: BENZOCAINE 20% AER SPR 82.5 GM CAN EXT PRN (05:09)
[2021-01-03] MEDS ORDERED: SENNA 8.6 MG TAB PO PRN (05:09)
--- NOTE | 2021-01-03 05:09 | History & Physical Bridge Note ---
Date of Service January 03, 2021 History & Physical Bridge Note I have examined the patient, reviewed the History & Physical and in the interval since the performance of the History & Physical I have noted the following changes of clinical significance: no changes noted
--- NOTE | 2021-01-03 05:09 | Post Operative Brief Note ---
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 - Franklyn Mcghee MD Surgeon Franklyn Mcghee MD Light Fixture Servicer danitza Holm RN Estimated Blood Loss 600 Findings Consistent with Post-Op Diagnosis Drains Parker Catheter
--- NOTE | 2021-01-03 05:34 | Anesthesiology Progress Note ---
Date of Service January 03, 2021 Anesthesia Post Procedure Vital Signs Vital Signs: Temp Pulse Resp BP Pulse Ox 01/03/21 05:32 78 92 01/03/21 05:28 82 91 01/03/21 05:27 82 92 01/03/21 05:23 83 124/66 01/03/21 05:22 88 93 01/03/21 05:21 84 92 01/03/21 05:16 90 90 01/03/21 05:11 86 120/61 92 01/03/21 05:10 85 92 01/03/21 03:30 85 94 01/03/21 03:25 87 94 01/03/21 03:20 85 92 01/03/21 03:15 89 93 01/03/21 03:10 88 93 01/03/21 03:05 89 94 01/03/21 03:00 88 94 01/03/21 02:56 90 148/84 H 01/03/21 02:55 89 94 01/03/21 02:53 37.4 C 18 01/03/21 02:50 104 H 94 01/03/21 02:45 92 H 94 01/03/21 02:40 83 95 01/03/21 02:35 91 H 96 01/03/21 02:30 85 95 01/03/21 02:26 117 H 166/75 H 01/03/21 02:25 86 95 01/03/21 02:20 98 H 95 01/03/21 02:19 86 87 L 01/03/21 02:15 86 93 01/03/21 02:11 82 158/74 H 01/03/21 02:10 89 96 01/03/21 02:07 82 88 L 01/03/21 02:05 86 97 01/03/21 02:00 115 H 97 01/03/21 01:59 87 84 L 01/03/21 01:57 94 H 156/72 H 01/03/21 01:55 80 97 01/03/21 01:50 87 96 01/03/21 01:49 82 83 L 01/03/21 01:45 82 96 01/03/21 01:43 88 87 L 01/03/21 01:40 97 H 99 01/03/21 01:35 90 98 01/03/21 01:30 89 97 01/03/21 01:25 97 H 98 01/03/21 01:20 87 98 01/03/21 01:15 96 H 97 01/03/21 01:11 80 161/96 H 01/03/21 01:10 87 97 01/03/21 01:05 91 H 96 01/03/21 01:00 104 H 94 01/03/21 00:55 90 98 01/03/21 00:50 38.4 C H 96 H 18 98 01/03/21 00:45 91 H 95 01/03/21 00:41 82 150/70 H 01/03/21 00:40 89 96 01/03/21 00:35 85 97 01/03/21 00:30 83 149/69 H 97 01/03/21 00:25 95 H 96 01/03/21 00:20 81 94 01/03/21 00:15 86 95 01/03/21 00:12 89 149/83 H 01/03/21 00:10 80 94 01/03/21 00:05 91 H 95 01/03/21 00:00 83 94 01/02/21 23:55 88 95 01/02/21 23:53 93 H 140/87 01/02/21 23:50 96 H 97 01/02/21 23:47 76 161/92 H 01/02/21 23:45 80 94 01/02/21 23:42 85 160/109 H 01/02/21 23:40 79 95 01/02/21 23:38 76 159/92 H 01/02/21 23:35 79 95 01/02/21 23:32 78 152/95 H 01/02/21 23:30 81 98 01/02/21 23:27 83 171/97 H 01/02/21 23:25 86 162/82 H 96 01/02/21 23:20 100 H 95 01/02/21 23:15 91 H 97 01/02/21 23:13 88 177/87 H 01/02/21 23:10 82 95 01/02/21 23:05 92 H 97 01/02/21 23:00 86 98 01/02/21 22:59 37.2 C 20 01/02/21 22:55 86 96 01/02/21 22:50 89 96 01/02/21 22:45 89 97 01/02/21 22:40 79 98 01/02/21 22:35 91 H 95 01/02/21 22:30 88 98 01/02/21 22:27 85 161/94 H 01/02/21 22:25 88 98 01/02/21 22:20 85 97 01/02/21 22:15 88 98 01/02/21 22:12 78 168/94 H 01/02/21 22:10 94 H 98 01/02/21 22:08 16 01/02/21 22:05 84 98 01/02/21 22:00 107 H 98 01/02/21 21:55 82 96 01/02/21 21:50 89 99 01/02/21 21:45 80 98 01/02/21 21:40 81 99 01/02/21 21:35 91 H 98 01/02/21 21:30 79 98 01/02/21 21:27 79 138/76 01/02/21 21:25 76 98 01/02/21 21:20 75 98 01/02/21 21:15 74 98 01/02/21 21:12 75 143/81 H 01/02/21 21:10 79 97 01/02/21 21:05 88 97 01/02/21 21:00 77 97 01/02/21 20:59 36.8 C 76 18 143/83 H 01/02/21 20:55 84 96 01/02/21 20:50 78 97 01/02/21 20:45 75 97 01/02/21 20:44 76 144/86 H 01/02/21 20:42 75 144/87 H 01/02/21 20:40 74 98 01/02/21 20:35 89 96 01/02/21 20:34 18 01/02/21 20:30 88 97 01/02/21 20:27 77 156/94 H 01/02/21 20:25 86 97 01/02/21 20:20 78 97 01/02/21 20:15 80 97 01/02/21 20:12 103 H 139/95 01/02/21 20:10 106 H 96 01/02/21 20:05 101 H 96 01/02/21 20:00 84 97 01/02/21 19:57 88 148/98 H 01/02/21 19:55 83 96 01/02/21 19:50 80 96 01/02/21 19:45 80 95 01/02/21 19:43 76 137/76 01/02/21 19:40 77 96 01/02/21 19:35 77 97 01/02/21 19:30 73 95 01/02/21 19:28 75 141/77 H 01/02/21 19:25 85 96 01/02/21 19:20 81 96 01/02/21 19:19 37.2 C 18 01/02/21 19:15 78 94 01/02/21 19:13 81 150/90 H 01/02/21 19:10 76 94 01/02/21 19:05 80 95 01/02/21 19:00 91 H 18 94 01/02/21 18:58 80 139/87 01/02/21 18:55 80 96 01/02/21 18:50 87 96 01/02/21 18:45 93 H 95 01/02/21 18:40 96 H 95 01/02/21 18:35 100 H 95 01/02/21 18:30 78 18 94 01/02/21 18:27 76 122/63 01/02/21 18:25 77 95 01/02/21 18:20 77 96 01/02/21 18:15 79 94 01/02/21 18:12 83 121/62 01/02/21 18:10 78 95 01/02/21 18:05 78 94 01/02/21 18:00 80 16 95 01/02/21 17:57 75 121/62 01/02/21 17:55 79 94 01/02/21 17:50 80 94 01/02/21 17:45 79 94 01/02/21 17:42 77 123/66 01/02/21 17:40 78 95 01/02/21 17:35 79 94 01/02/21 17:30 76 20 95 01/02/21 17:27 75 124/68 01/02/21 17:25 77 95 01/02/21 17:20 76 96 01/02/21 17:15 76 96 01/02/21 17:12 74 128/70 01/02/21 17:10 81 96 01/02/21 17:05 73 96 01/02/21 17:00 75 20 96 01/02/21 16:57 71 134/74 01/02/21 16:55 76 96 08/31/21 16:50 69 97 01/02/21 16:45 88 99 01/02/21 16:42 75 137/83 01/02/21 16:40 79 98 01/02/21 16:35 83 97 01/02/21 16:30 87 20 95 01/02/21 16:27 73 145/82 H 01/02/21 16:25 83 98 01/02/21 16:20 75 99 01/02/21 16:15 80 99 01/02/21 16:12 82 154/81 H 01/02/21 16:11 88 88 L 01/02/21 16:10 85 93 01/02/21 16:05 77 159/91 H 97 01/02/21 16:00 86 20 99 01/02/21 15:58 72 167/93 H 01/02/21 15:55 73 97 01/02/21 15:50 76 97 01/02/21 15:45 80 97 01/02/21 15:42 73 149/84 H 01/02/21 15:40 83 97 01/02/21 15:35 76 97 01/02/21 15:30 78 18 98 01/02/21 15:25 96 H 95 01/02/21 15:20 79 98 01/02/21 15:15 97 H 97 01/02/21 15:12 73 142/65 H 01/02/21 15:10 76 96 01/02/21 15:05 74 96 01/02/21 15:00 74 20 96 01/02/21 14:57 74 142/65 H 01/02/21 14:55 75 96 01/02/21 14:50 74 96 01/02/21 14:45 75 96 01/02/21 14:42 74 148/67 H 01/02/21 14:40 75 95 01/02/21 14:35 75 96 01/02/21 14:30 75 20 97 01/02/21 14:28 80 150/67 H 01/02/21 14:25 80 97 01/02/21 14:20 77 96 01/02/21 14:15 84 98 01/02/21 14:13 76 151/67 H 01/02/21 14:10 78 97 01/02/21 14:05 90 18 98 01/02/21 14:00 75 18 96 01/02/21 13:57 77 133/75 01/02/21 13:55 79 97 01/02/21 13:50 80 96 01/02/21 13:45 77 96 01/02/21 13:42 75 132/73 01/02/21 13:40 77 95 01/02/21 13:35 77 94 01/02/21 13:34 79 94 01/02/21 13:30 78 95 01/02/21 13:27 75 127/71 01/02/21 13:25 80 95 01/02/21 13:23 78 94 01/02/21 13:20 77 95 01/02/21 13:15 76 96 01/02/21 13:13 75 130/73 01/02/21 13:10 78 96 01/02/21 13:05 75 97 01/02/21 13:00 76 20 96 01/02/21 12:58 76 133/69 01/02/21 12:55 77 97 01/02/21 12:50 78 97 01/02/21 12:45 78 97 01/02/21 12:42 83 144/93 H 01/02/21 12:40 80 98 01/02/21 12:35 74 98 01/02/21 12:30 75 98 01/02/21 12:27 75 144/83 H 01/02/21 12:25 83 98 01/02/21 12:20 87 98 01/02/21 12:15 98 H 99 01/02/21 12:12 169 H 146/83 H 89 L 01/02/21 12:10 95 H 98 01/02/21 12:05 91 H 98 01/02/21 12:00 94 H 98 01/02/21 11:55 90 97 01/02/21 11:50 80 98 01/02/21 11:45 83 98 01/02/21 11:42 79 140/80 01/02/21 11:40 81 98 01/02/21 11:35 76 96 01/02/21 11:30 89 96 01/02/21 11:27 76 129/72 01/02/21 11:25 77 97 01/02/21 11:20 94 H 97 01/02/21 11:15 76 96 01/02/21 11:12 79 124/66 01/02/21 11:10 80 96 01/02/21 11:05 80 97 01/02/21 11:00 36.9 C 90 20 97 01/02/21 10:58 84 136/92 01/02/21 10:55 81 96 01/02/21 10:50 80 95 01/02/21 10:45 83 95 01/02/21 10:42 78 141/73 H 01/02/21 10:40 82 95 01/02/21 10:36 82 94 01/02/21 10:35 82 95 01/02/21 10:30 81 95 01/02/21 10:29 79 94 01/02/21 10:27 78 139/73 01/02/21 10:25 81 95 01/02/21 10:24 79 94 01/02/21 10:20 81 95 01/02/21 10:15 78 96 01/02/21 10:12 77 139/80 01/02/21 10:10 80 95 01/02/21 10:05 81 97 01/02/21 10:01 94 H 94 01/02/21 10:00 78 96 01/02/21 09:57 81 141/81 H 01/02/21 09:55 82 96 01/02/21 09:50 95 H 97 01/02/21 09:45 79 96 01/02/21 09:42 80 133/80 01/02/21 09:40 80 97 01/02/21 09:35 78 97 01/02/21 09:30 93 H 97 01/02/21 09:27 78 136/84 01/02/21 09:25 85 97 01/02/21 09:20 81 97 01/02/21 09:15 79 97 01/02/21 09:13 82 134/79 01/02/21 09:10 82 98 01/02/21 09:05 84 99 01/02/21 09:00 75 20 97 01/02/21 08:57 78 135/83 01/02/21 08:55 77 97 01/02/21 08:50 77 98 01/02/21 08:45 78 98 01/02/21 08:43 73 145/83 H 01/02/21 08:40 79 99 01/02/21 08:35 86 100 01/02/21 08:30 94 H 100 08/31/21 08:28 90 139/87 01/02/21 08:25 93 H 99 01/02/21 08:20 87 99 01/02/21 08:15 96 H 100 01/02/21 08:12 85 130/83 01/02/21 08:10 82 99 01/02/21 08:05 82 100 01/02/21 08:00 77 18 99 01/02/21 07:58 83 137/78 01/02/21 07:55 88 100 01/02/21 07:50 84 100 01/02/21 07:45 88 100 01/02/21 07:40 92 H 96 01/02/21 07:35 89 100 01/02/21 07:30 102 H 20 98 01/02/21 07:27 82 121/66 01/02/21 07:25 81 98 01/02/21 07:20 78 97 01/02/21 07:15 78 99 01/02/21 07:13 78 122/70 01/02/21 07:12 80 125/73 01/02/21 07:10 79 99 01/02/21 07:05 86 100 01/02/21 07:01 90 124/72 01/02/21 07:00 37.0 C 82 20 98 01/02/21 06:57 76 124/71 01/02/21 06:55 76 98 01/02/21 06:50 80 99 01/02/21 06:45 90 99 01/02/21 06:43 88 137/72 01/02/21 06:40 82 100 01/02/21 06:35 88 100 01/02/21 06:30 91 H 99 01/02/21 06:26 85 123/64 01/02/21 06:25 85 100 01/02/21 06:24 90 125/75 01/02/21 06:22 86 124/67 01/02/21 06:20 84 129/66 99 01/02/21 06:18 100 H 116/64 01/02/21 06:16 85 129/72 01/02/21 06:15 90 98 01/02/21 06:14 81 134/77 01/02/21 06:12 80 133/76 01/02/21 06:11 20 01/02/21 06:10 103 H 99 01/02/21 06:05 78 97 01/02/21 06:00 123 H 98 01/02/21 05:55 101 H 86 L 01/02/21 05:50 86 98 01/02/21 05:45 90 98 01/02/21 05:44 85 146/88 H 01/02/21 05:40 85 100 01/02/21 05:35 88 99 Pain Intensity Left Abdomen: Pain Intensity: 2 Transfer of Care Handoff Completed per policy Notes Mental Status: alert / awake / arousable Patient Amnestic to Procedure: Yes Nausea / Vomiting: adequately controlled Pain: adequately controlled Airway Patency, RR, SpO2: stable & adequate BP & HR: stable & adequate Hydration State: stable & adequate Neuraxial Anesthesia: was administered and sensory block is resolving Anesthetic Complications: no major complications apparent and Pt Satisfied with anesthetic care
[2021-01-03] MEDS: OXYTOCIN 20 UNITS in LACTATED RINGER'S 1,000 ML IV SCH ×2 (05:42→16:31)
[2021-01-03] MEDS ORDERED: CITRIC ACID/SODIUM CITRATE 15 ML UDC PO SCH (06:00)
--- NOTE | 2021-01-03 06:08 | Pharmacy Report ---
Pharmacy Abx Initial Consult - Date of Service January 03, 2021 - Pharmacy Dosing Scope Date of Consult: 01/02/21 Consultation requested by: Dr. Mcghee Pharmacy is consulted to initiate Gentamicin IV dosing therapy, order appropriate labs and adjust drug dose/frequency. - Subjective The patient is a 25 year old F admitted on 01/01/21 07:55. - Objective Height: 5 ft 2 in Weight: 84.822 kg Vital Signs (Past 12hrs): Vital Signs Temp Pulse Resp BP Pulse Ox 01/03/21 05:57 85 94 01/03/21 05:52 84 136/68 94 01/03/21 05:51 20 01/03/21 05:47 82 93 01/03/21 05:42 86 122/66 94 01/03/21 05:41 14 01/03/21 05:37 79 94 01/03/21 05:34 82 115/60 01/03/21 05:32 78 92 01/03/21 05:31 16 01/03/21 05:28 82 91 01/03/21 05:27 82 92 01/03/21 05:23 83 124/66 01/03/21 05:22 88 93 01/03/21 05:21 36.8 C 84 14 92 01/03/21 05:16 90 90 01/03/21 05:11 86 120/61 92 01/03/21 05:10 85 92 01/03/21 03:30 85 94 01/03/21 03:25 87 94 01/03/21 03:20 85 92 01/03/21 03:15 89 93 01/03/21 03:10 88 93 01/03/21 03:05 89 94 01/03/21 03:00 88 94 01/03/21 02:56 90 148/84 H 01/03/21 02:55 89 94 01/03/21 02:53 37.4 C 18 01/03/21 02:50 104 H 94 01/03/21 02:45 92 H 94 01/03/21 02:40 83 95 01/03/21 02:35 91 H 96 01/03/21 02:30 85 95 01/03/21 02:26 117 H 166/75 H 01/03/21 02:25 86 95 01/03/21 02:20 98 H 95 01/03/21 02:19 86 87 L 01/03/21 02:15 86 93 01/03/21 02:11 82 158/74 H 01/03/21 02:10 89 96 01/03/21 02:07 82 88 L 01/03/21 02:05 86 97 01/03/21 02:00 115 H 97 01/03/21 01:59 87 84 L 01/03/21 01:57 94 H 156/72 H 01/03/21 01:55 80 97 01/03/21 01:50 87 96 01/03/21 01:49 82 83 L 01/03/21 01:45 82 96 01/03/21 01:43 88 87 L 01/03/21 01:40 97 H 99 01/03/21 01:35 90 98 01/03/21 01:30 89 97 01/03/21 01:25 97 H 98 01/03/21 01:20 87 98 01/03/21 01:15 96 H 97 01/03/21 01:11 80 161/96 H 01/03/21 01:10 87 97 01/03/21 01:05 91 H 96 01/03/21 01:00 104 H 94 01/03/21 00:55 90 98 01/03/21 00:50 38.4 C H 96 H 18 98 01/03/21 00:45 91 H 95 01/03/21 00:41 82 150/70 H 01/03/21 00:40 89 96 01/03/21 00:35 85 97 01/03/21 00:30 83 149/69 H 97 01/03/21 00:25 95 H 96 01/03/21 00:20 81 94 01/03/21 00:15 86 95 01/03/21 00:12 89 149/83 H 01/03/21 00:10 80 94 01/03/21 00:05 91 H 95 01/03/21 00:00 83 94 01/02/21 23:55 88 95 01/02/21 23:53 93 H 140/87 01/02/21 23:50 96 H 97 01/02/21 23:47 76 161/92 H 01/02/21 23:45 80 94 01/02/21 23:42 85 160/109 H 01/02/21 23:40 79 95 01/02/21 23:38 76 159/92 H 01/02/21 23:35 79 95 01/02/21 23:32 78 152/95 H 01/02/21 23:30 81 98 01/02/21 23:27 83 171/97 H 01/02/21 23:25 86 162/82 H 96 01/02/21 23:20 100 H 95 01/02/21 23:15 91 H 97 01/02/21 23:13 88 177/87 H 01/02/21 23:10 82 95 01/02/21 23:05 92 H 97 01/02/21 23:00 86 98 01/02/21 22:59 37.2 C 20 01/02/21 22:55 86 96 01/02/21 22:50 89 96 01/02/21 22:45 89 97 01/02/21 22:40 79 98 01/02/21 22:35 91 H 95 01/02/21 22:30 88 98 01/02/21 22:27 85 161/94 H 01/02/21 22:25 88 98 01/02/21 22:20 85 97 01/02/21 22:15 88 98 01/02/21 22:12 78 168/94 H 01/02/21 22:10 94 H 98 01/02/21 22:08 16 01/02/21 22:05 84 98 01/02/21 22:00 107 H 98 01/02/21 21:55 82 96 01/02/21 21:50 89 99 01/02/21 21:45 80 98 01/02/21 21:40 81 99 01/02/21 21:35 91 H 98 01/02/21 21:30 79 98 01/02/21 21:27 79 138/76 01/02/21 21:25 76 98 01/02/21 21:20 75 98 01/02/21 21:15 74 98 01/02/21 21:12 75 143/81 H 01/02/21 21:10 79 97 01/02/21 21:05 88 97 01/02/21 21:00 77 97 01/02/21 20:59 36.8 C 76 18 143/83 H 01/02/21 20:55 84 96 01/02/21 20:50 78 97 01/02/21 20:45 75 97 01/02/21 20:44 76 144/86 H 01/02/21 20:42 75 144/87 H 01/02/21 20:40 74 98 01/02/21 20:35 89 96 01/02/21 20:34 18 01/02/21 20:30 88 97 01/02/21 20:27 77 156/94 H 01/02/21 20:25 86 97 01/02/21 20:20 78 97 01/02/21 20:15 80 97 01/02/21 20:12 103 H 139/95 01/02/21 20:10 106 H 96 01/02/21 20:05 101 H 96 01/02/21 20:00 84 97 01/02/21 19:57 88 148/98 H 01/02/21 19:55 83 96 01/02/21 19:50 80 96 01/02/21 19:45 80 95 01/02/21 19:43 76 137/76 01/02/21 19:40 77 96 01/02/21 19:35 77 97 01/02/21 19:30 73 95 01/02/21 19:28 75 141/77 H 01/02/21 19:25 85 96 01/02/21 19:20 81 96 01/02/21 19:19 37.2 C 18 01/02/21 19:15 78 94 01/02/21 19:13 81 150/90 H 01/02/21 19:10 76 94 01/02/21 19:05 80 95 01/02/21 19:00 91 H 18 94 01/02/21 18:58 80 139/87 01/02/21 18:55 80 96 01/02/21 18:50 87 96 01/02/21 18:45 93 H 95 01/02/21 18:40 96 H 95 01/02/21 18:35 100 H 95 01/02/21 18:30 78 18 94 01/02/21 18:27 76 122/63 01/02/21 18:25 77 95 01/02/21 18:20 77 96 01/02/21 18:15 79 94 01/02/21 18:12 83 121/62 01/02/21 18:10 78 95 01/02/21 18:05 78 94 - Risk Factors for Resistance * None - Assessment & Plan Assessment 25 year old F started on Gentamicin during intrapartum period * Ordered empirically Plan Gentamicin for treatment of empiric genitourinary infection Gentamicin * Patient meets criteria for extended-interval aminoglycoside dosing per the Ur ban-[place] nomogram * Dose: 420 mg IV every 24 hours (5 mg/kg based on actual body weight for intrapartum patient) * No levels will be ordered at this time unless therapy extends beyond 72 hours Pharmacy will continue to follow and will adjust dose/frequency as necessary. Thank you.
--- NOTE | 2021-01-03 06:23 | Operative Report (OR) ---
DATE OF PROCEDURE: INDICATIONS: This is a 25-year-old G1, P0 with history of gestational hypertension. The patient was brought in on 01/01/2021 for induction of labor. She received Pitocin and was ruptured. The patien t went on to be fully dilated and pushed for 2 hours, there was no cervical change. The patient expe rienced the followin. Failure to descend. 2. Cephalopelvic disproportion. 3. Maternal exhaustion. The patient, therefore underwent section. PREOPERATIVE DIAGNOSES: 1. at term. 2. Gestational hypertension. 3. Failure to descend. 4. Cephalopelvic disproportion. 5. Maternal exhaustion. POSTOPERATIVE DIAGNOSES: 1. at term. 2. Gestational hypertension. 3. Failure to descend. 4. Cephalopelvic disproportion. 5. Maternal exhaustion. PROCEDURE: section. SURGEON: Franklyn Mcghee MD. NURSING HOME SOCIAL WORKER: Dorothy Holm RN FINDINGS: Live infant in cephalic presentation. Uterus, tubes and rest of abdominal exam is unremar kable. COMPLICATIONS: None. PATHOLOGY: Cord blood and placenta. DRAINS: Parker catheter. ESTIMATED BLOOD LOSS: 600 mL. INTRAVENOUS FLUIDS: 1900 mL. URINE OUTPUT: 100 mL of clear urine at the end of the procedure. DESCRIPTION OF PROCEDURE: The patient was taken to the operating room where she was prepped and drap ed in a normal sterile fashion. Timeout was called Pfannenstiel incision was made with a scalpel and carried down to the fascia. Fascia was incised in the midline and extended laterally on both sides. Fascia was sharply dissected off the rectus abdominis muscle. Peritoneum was identified and entere d sharply. Once inside the abdomen, an Cade retractor was placed in the abdomen for retraction. F indings of the abdomen are as dictated above. A low transverse incision was made on the uterus and extended laterally on both sides with a scalpel. was delivered. Cord was clamped and cut and handed over to the waiting pediatric team. Inf ant's information is in the pediatric record. Cord blood was obtained. Placenta was manually remove d. Uterus was exteriorized and cleared of all clots and debris. Uterus was closed in two layers wit h Vicryl. There was good hemostasis post-closure. Uterus was returned to the abdominal cavity and c opious amount of irrigation used to irrigate the abdomen. Cade retractor was removed. Peritoneum was reapproximated using plain suture. Fascia was closed with Vicryl stitch. Subcutaneous space was approximated with plain suture and the skin was closed with cyndy. All instruments were removed from the abdomen and accounted for x2 including sponges, needles, and re tractors. The patient is sent to recovery in stable condition. Job ID: [id number]
[2021-01-03] MEDS: SIMETHICONE 80 MG CHEW PO SCH ×4 (07:48→20:27)
[2021-01-03] MEDS: PRENATAL VITAMIN 1 TAB PO SCH (08:01)
[2021-01-03] MEDS: FERROUS SULFATE 325 MG TAB PO SCH (08:01)
[2021-01-03] MEDS: DOCUSATE SODIUM 100 MG CAP PO SCH ×2 (08:01→20:27)
[2021-01-03] MEDS ORDERED: LABETALOL HCL 100 MG TAB PO ONE (08:08)
[2021-01-03] MEDS: SERTRALINE HCL 50 MG TABLET PO SCH (08:56)
[2021-01-03 09:13] LABS: Hematocrit (blood only) 32.3 % (37-47); Hemoglobin 10.8 g/dL (12.0-16.0); Mean Corpuscular Hemoglobin 28.9 pg (25-34); Mean Corpuscular Hgb Conc 33.4 g/dL (32-36); Mean Corpuscular Volume 86.4 fL (80-100); Platelet Count 183 K/uL (130-400); RDW Coefficient of Variation 12.2 % (11.5-14.5); RDW Standard Deviation 38.5 fL (36.4-46.3); Red Blood Count 3.74 M/uL (4.2-5.4); White Blood Count 28.05 K/uL (4.8-10.8)
[2021-01-03 09:30] LABS: Basophils # (auto) 0.02 K/uL (0-0.2); Basophils % (auto) 0.1 %; Immature Granulocytes # (auto) 0.18 K/uL (0.00-0.02); Immature Granulocytes % (auto) 0.6 %; Lymphocytes # (auto) 1.22 K/uL (1.2-3.4); Lymphocytes % (auto) 4.3 %; Monocytes # (auto) 2.17 K/uL (0.11-0.59); Monocytes % (auto) 7.7 %; Neutrophils # (auto) 24.46 K/uL (1.4-6.5); Neutrophils % (auto) 87.3 %; RBC Morphology Unremarkable
[2021-01-03 09:49] LABS: Albumin Globulin Ratio 0.5 (0.9-2); Albumin Level 1.7 gm/dl (3.4-5.0); BUN Creatinine Ratio 11.5 (10-20); Bilirubin,Total 0.5 mg/dl (0.2-1); Calcium 7.7 mg/dl (8.5-10.1); Creatinine Clr Calc Pharmacy 82.9 ml/min; Est GFR (African American) 86.3 ml/min; Est GFR (Non-African American) 74.4 ml/min; Globulin 3.5 gm/dl (2.5-4.0); Potassium 4.4 mmol/L (3.5-5.1); Total Protein 5.2 gm/dl (6.4-8.2)
[2021-01-03] MEDS: KETOROLAC 30 MG/ML VIAL IV PRN ×2 (12:29→21:34)
--- NOTE | 2021-01-03 16:44 | Obstetrical Progress Note ---
Date of Service January 03, 2021 Assessment & Plan Admission and Anticipated Discharge Date Admission Date: January 01, 2021 Subjective Postop check Patient is seen and examined Feels well, no complaints Pain is under control with meds No CP/ SOB/ Dizziness/ N&V/ VB/ Leg pain Not OOB yet Tolerating clears and just ate regular dinner Baby is doing well, awaiting blood cultures Vital Signs Temp Pulse Pulse Resp BP BP Pulse Ox 01/03/21 14:30 18 95 01/03/21 13:27 18 95 01/03/21 12:20 37.6 C H 89 16 151/96 H 98 01/03/21 11:30 16 97 01/03/21 10:28 16 96 01/03/21 10:25 16 88 L 01/03/21 09:20 18 96 01/03/21 09:19 37.7 C H 92 H 20 147/93 H 96 01/03/21 09:15 37.7 C H 92 H 16 147/93 H 96 01/03/21 08:25 37.5 C 102 H 18 161/106 H 97 01/03/21 08:19 97 H 157/86 H 01/03/21 08:16 100 H 96 01/03/21 08:11 90 97 01/03/21 08:06 90 97 01/03/21 08:01 97 H 97 01/03/21 07:56 106 H 90 01/03/21 07:55 96 H 88 L 01/03/21 07:52 98 H 171/80 H 01/03/21 07:51 100 H 94 01/03/21 07:48 111 H 88 L 01/03/21 07:46 104 H 91 01/03/21 07:41 111 H 92 01/03/21 07:36 107 H 93 01/03/21 07:31 119 H 92 01/03/21 07:27 111 H 93 01/03/21 07:22 90 147/83 H 96 01/03/21 07:17 95 H 98 01/03/21 07:12 102 H 163/87 H 98 01/03/21 07:11 38.3 C H 20 01/03/21 07:07 84 96 01/03/21 07:02 86 162/82 H 97 01/03/21 06:57 87 97 01/03/21 06:53 89 90 01/03/21 06:52 90 168/84 H 89 L 01/03/21 06:47 88 89 L 01/03/21 06:42 108 H 172/91 H 89 L 01/03/21 06:41 97 H 22 90 01/03/21 06:39 103 H 150/68 H 01/03/21 06:37 96 H 86 L 01/03/21 06:32 104 H 177/120 H 90 01/03/21 06:30 99 H 90 01/03/21 06:27 102 H 91 01/03/21 06:23 94 H 91 01/03/21 06:22 98 H 132/93 94 01/03/21 06:17 100 H 93 01/03/21 06:12 101 H 127/91 94 01/03/21 06:11 36.9 C 18 01/03/21 06:07 99 H 94 01/03/21 06:02 97 H 143/86 H 95 01/03/21 06:01 22 01/03/21 05:57 85 94 01/03/21 05:52 84 136/68 94 01/03/21 05:51 20 01/03/21 05:47 82 93 01/03/21 05:42 86 122/66 94 01/03/21 05:41 14 01/03/21 05:37 79 94 01/03/21 05:34 82 115/60 01/03/21 05:32 78 92 01/03/21 05:31 16 01/03/21 05:28 82 91 01/03/21 05:27 82 92 01/03/21 05:23 83 124/66 01/03/21 05:22 88 93 01/03/21 05:21 36.8 C 84 14 92 01/03/21 05:16 90 90 01/03/21 05:11 86 120/61 92 01/03/21 05:10 85 92 Intake & Output 01/03/21 01/03/21 01/03/21 06:59 14:59 22:59 Intake Total 3399.499 / 6434.183 1202.000 / 1202.000 Output Total 1249 925 / 925 Balance 2149.499 / 4384.183 277.000 / 277.000 Intake: IV 1499.499 / 4534.183 1202.000 / 1202.000 Ampicillin 2,000 mg In Sodium 100 / 100 200 / 200 Chlor 0.9% Ad-Van 100 ml @ 200 mls/hr IV Q6H [facility] Rx#:[id number] Gentamicin Sulfate 420 mg In 110.5 / 110.5 Dextrose 5% 100 ml @ 100 mls/hr IV Q24H [facility] Rx#:[id number] Lactated Ringer's 1,000 ml @ 1239.266 / 4211.683 0 / 0 125 mls/hr IV .Q8H PRN Rx#: [id number] Oxytocin 20 units In Lactated 1002.000 / 1002.000 Ringer's 1,000 ml @ 125 mls/hr IV .Q8H1M [facility] Rx#:[id number] Oxytocin 30 units In 500 ml @ 0 49.733 / 112.000 UNITS/HR IV .Q0M PRN Rx#: [id number] IV Perioperative 1900 / 1900 Output: Estimated Blood Loss 600 / 600 Urine Amount (Catheter) 650 / 1450 925 / 925 Parker/Indwelling 650 / 1450 925 / 925 PE: General: Alert, orientedx3, NAD CVS: S1S2 RRR Lungs: CTAB Abd: soft, NT, Distended, BS+, Dressing/ Incisions C/D/I No VB Ext: NT, no edema, SCD's on AP: 25 yo female s/p Primary Csection , s/p IOL for preeclampsia without severe features, pod#0 VSS Afebrile doing well BP's stable with PO Labetalol Abdomen distended? muscular defence? Will get CBC and monitor closely Results & Data ([facility]) Vital Signs (Past 12 Hours) Vital Signs Temp Pulse Pulse Resp BP BP Pulse Ox 01/03/21 14:30 18 95 01/03/21 13:27 18 95 01/03/21 12:20 37.6 C H 89 16 151/96 H 98 01/03/21 11:30 16 97 01/03/21 10:28 16 96 01/03/21 10:25 16 88 L 01/03/21 09:20 18 96 01/03/21 09:19 37.7 C H 92 H 20 147/93 H 96 01/03/21 09:15 37.7 C H 92 H 16 147/93 H 96 01/03/21 08:25 37.5 C 102 H 18 161/106 H 97 01/03/21 08:19 97 H 157/86 H 01/03/21 08:16 100 H 96 01/03/21 08:11 90 97 01/03/21 08:06 90 97 01/03/21 08:01 97 H 97 01/03/21 07:56 106 H 90 01/03/21 07:55 96 H 88 L 01/03/21 07:52 98 H 171/80 H 01/03/21 07:51 100 H 94 01/03/21 07:48 111 H 88 L 01/03/21 07:46 104 H 91 01/03/21 07:41 111 H 92 01/03/21 07:36 107 H 93 01/03/21 07:31 119 H 92 01/03/21 07:27 111 H 93 01/03/21 07:22 90 147/83 H 96 01/03/21 07:17 95 H 98 01/03/21 07:12 102 H 163/87 H 98 01/03/21 07:11 38.3 C H 20 01/03/21 07:07 84 96 01/03/21 07:02 86 162/82 H 97 01/03/21 06:57 87 97 01/03/21 06:53 89 90 01/03/21 06:52 90 168/84 H 89 L 01/03/21 06:47 88 89 L 01/03/21 06:42 108 H 172/91 H 89 L 01/03/21 06:41 97 H 22 90 01/03/21 06:39 103 H 150/68 H 01/03/21 06:37 96 H 86 L 01/03/21 06:32 104 H 177/120 H 90 01/03/21 06:30 99 H 90 01/03/21 06:27 102 H 91 01/03/21 06:23 94 H 91 01/03/21 06:22 98 H 132/93 94 01/03/21 06:17 100 H 93 01/03/21 06:12 101 H 127/91 94 01/03/21 06:11 36.9 C 18 01/03/21 06:07 99 H 94 01/03/21 06:02 97 H 143/86 H 95 01/03/21 06:01 22 01/03/21 05:57 85 94 01/03/21 05:52 84 136/68 94 01/03/21 05:51 20 01/03/21 05:47 82 93 01/03/21 05:42 86 122/66 94 01/03/21 05:41 14 01/03/21 05:37 79 94 01/03/21 05:34 82 115/60 01/03/21 05:32 78 92 01/03/21 05:31 16 01/03/21 05:28 82 91 01/03/21 05:27 82 92 01/03/21 05:23 83 124/66 01/03/21 05:22 88 93 01/03/21 05:21 36.8 C 84 14 92 01/03/21 05:16 90 90 01/03/21 05:11 86 120/61 92 01/03/21 05:10 85 92
[2021-01-03] MEDS: LABETALOL HCL 100 MG TAB PO SCH (16:49)
[2021-01-03 17:18] LABS: Basophils # (auto) 0.02 K/uL (0-0.2); Basophils % (auto) 0.1 %; Eosinophils # (auto) 0.02 K/uL (0-0.5); Eosinophils % (auto) 0.1 %; Hematocrit (blood only) 32.2 % (37-47); Hemoglobin 10.9 g/dL (12.0-16.0); Immature Granulocytes % (auto) 0.4 %; Lymphocytes # (auto) 2.24 K/uL (1.2-3.4); Lymphocytes % (auto) 9.4 %; Mean Corpuscular Hemoglobin 29.4 pg (25-34); Mean Corpuscular Hgb Conc 33.9 g/dL (32-36); Mean Corpuscular Volume 86.8 fL (80-100); Mean Platelet Volume 11.1 fL (7.4-10.4); Monocytes # (auto) 1.76 K/uL (0.11-0.59); Monocytes % (auto) 7.4 %; Neutrophils # (auto) 19.59 K/uL (1.4-6.5); Neutrophils % (auto) 82.6 %; Nucleated RBC # (auto) 0.05 K/uL (0-0); Nucleated RBC % (auto) 0.2 %; Platelet Count 159 K/uL (130-400); RDW Coefficient of Variation 12.3 % (11.5-14.5); RDW Standard Deviation 38.9 fL (36.4-46.3); Red Blood Count 3.71 M/uL (4.2-5.4); White Blood Count 23.73 K/uL (4.8-10.8)
--- NOTE | 2021-01-03 17:39 | Obstetrical Progress Note ---
Date of Service January 03, 2021 Assessment & Plan Admission and Anticipated Discharge Date Admission Date: January 01, 2021 Subjective H&H is stable Continue to monitor closely Results & Data ([facility]) Vital Signs (Past 12 Hours) Vital Signs Temp Pulse Pulse Resp BP BP Pulse Ox 01/03/21 15:17 36.9 C 79 18 143/93 H 94 01/03/21 14:30 18 95 01/03/21 13:27 18 95 01/03/21 12:20 37.6 C H 89 16 151/96 H 98 01/03/21 11:30 16 97 01/03/21 10:28 16 96 01/03/21 10:25 16 88 L 01/03/21 09:20 18 96 01/03/21 09:19 37.7 C H 92 H 20 147/93 H 96 01/03/21 09:15 37.7 C H 92 H 16 147/93 H 96 01/03/21 08:25 37.5 C 102 H 18 161/106 H 97 01/03/21 08:19 97 H 157/86 H 01/03/21 08:16 100 H 96 01/03/21 08:11 90 97 01/03/21 08:06 90 97 01/03/21 08:01 97 H 97 01/03/21 07:56 106 H 90 01/03/21 07:55 96 H 88 L 01/03/21 07:52 98 H 171/80 H 01/03/21 07:51 100 H 94 01/03/21 07:48 111 H 88 L 01/03/21 07:46 104 H 91 01/03/21 07:41 111 H 92 01/03/21 07:36 107 H 93 01/03/21 07:31 119 H 92 01/03/21 07:27 111 H 93 01/03/21 07:22 90 147/83 H 96 01/03/21 07:17 95 H 98 01/03/21 07:12 102 H 163/87 H 98 01/03/21 07:11 38.3 C H 20 01/03/21 07:07 84 96 01/03/21 07:02 86 162/82 H 97 01/03/21 06:57 87 97 01/03/21 06:53 89 90 01/03/21 06:52 90 168/84 H 89 L 01/03/21 06:47 88 89 L 01/03/21 06:42 108 H 172/91 H 89 L 01/03/21 06:41 97 H 22 90 01/03/21 06:39 103 H 150/68 H 01/03/21 06:37 96 H 86 L 01/03/21 06:32 104 H 177/120 H 90 01/03/21 06:30 99 H 90 01/03/21 06:27 102 H 91 01/03/21 06:23 94 H 91 01/03/21 06:22 98 H 132/93 94 01/03/21 06:17 100 H 93 01/03/21 06:12 101 H 127/91 94 01/03/21 06:11 36.9 C 18 01/03/21 06:07 99 H 94 01/03/21 06:02 97 H 143/86 H 95 01/03/21 06:01 22 01/03/21 05:57 85 94 01/03/21 05:52 84 136/68 94 01/03/21 05:51 20 01/03/21 05:47 82 93 01/03/21 05:42 86 122/66 94 01/03/21 05:41 14
[2021-01-03] MEDS ORDERED: PROMETHAZINE HCL 25 MG in SODIUM CHLORIDE 0.9% 50 ML IV PRN (22:03)
[2021-01-03] MEDS ORDERED: diphenhydrAMINE Capsule 25 MG CAP PO PRN (22:03)
[2021-01-04] MEDS: IBUPROFEN 600 MG TAB PO PRN ×5 (00:24→21:35)
[2021-01-04] MEDS: AMPICILLIN 2,000 MG in SODIUM CHLOR 0.9% AD-VAN 100 ML IV SCH ×3 (01:02→13:03)
[2021-01-04] MEDS: GENTAMICIN SULFATE 420 MG in DEXTROSE 5% 100 ML IV SCH (01:35)
[2021-01-04] MEDS: LABETALOL HCL 100 MG TAB PO SCH ×2 (04:49→16:49)
[2021-01-04 06:43] LABS: Basophils # (auto) 0.02 K/uL (0-0.2); Basophils % (auto) 0.1 %; Eosinophils # (auto) 0.13 K/uL (0-0.5); Eosinophils % (auto) 0.7 %; Hematocrit (blood only) 28.5 % (37-47); Hemoglobin 9.5 g/dL (12.0-16.0); Immature Granulocytes # (auto) 0.09 K/uL (0.00-0.02); Immature Granulocytes % (auto) 0.5 %; Lymphocytes % (auto) 10.7 %; Mean Corpuscular Hemoglobin 28.9 pg (25-34); Mean Corpuscular Hgb Conc 33.3 g/dL (32-36); Mean Corpuscular Volume 86.6 fL (80-100); Mean Platelet Volume 10.6 fL (7.4-10.4); Monocytes % (auto) 8.6 %; Neutrophils # (auto) 14.78 K/uL (1.4-6.5); Neutrophils % (auto) 79.4 %; Nucleated RBC # (auto) 0.02 K/uL (0-0); Nucleated RBC % (auto) 0.1 %; Platelet Count 154 K/uL (130-400); RDW Coefficient of Variation 12.5 % (11.5-14.5); RDW Standard Deviation 38.9 fL (36.4-46.3); Red Blood Count 3.29 M/uL (4.2-5.4); White Blood Count 18.62 K/uL (4.8-10.8)
[2021-01-04 07:10] LABS: Creatinine Clr Calc Pharmacy 91.8 ml/min; Est GFR (African American) 97.6 ml/min; Est GFR (Non-African American) 84.2 ml/min
[2021-01-04] MEDS: FERROUS SULFATE 325 MG TAB PO SCH (07:27)
[2021-01-04] MEDS: PRENATAL VITAMIN 1 TAB PO SCH (07:27)
[2021-01-04] MEDS: SERTRALINE HCL 50 MG TABLET PO SCH (07:27)
[2021-01-04] MEDS: DOCUSATE SODIUM 100 MG CAP PO SCH ×2 (07:27→21:35)
[2021-01-04] MEDS: SIMETHICONE 80 MG CHEW PO SCH ×4 (07:27→21:35)
[2021-01-04] MEDS: oxyCODONE/ACETAMINOPHEN 5mg/325mg TAB PO PRN ×2 (09:35→23:16)
[2021-01-04] MEDS: ACETAMINOPHEN 325 MG TAB PO PRN ×2 (13:03→18:34)
[2021-01-04] MEDS: AMOXICILLIN/CLAVULANATE 875 MG TAB PO SCH ×2 (16:39→16:49)
[2021-01-04] MEDS ORDERED: bisacodyL 5 MG TABEC PO SCH (20:00)
[2021-01-05] MEDS: ACETAMINOPHEN 325 MG TAB PO PRN (03:57)
[2021-01-05] MEDS: oxyCODONE/ACETAMINOPHEN 5mg/325mg TAB PO PRN ×2 (04:26→08:57)
[2021-01-05] MEDS: IBUPROFEN 600 MG TAB PO PRN ×2 (04:27→08:56)
[2021-01-05] MEDS ORDERED: bisacodyL 10 MG SUPP PR PRN (05:10)
[2021-01-05] MEDS: LABETALOL HCL 100 MG TAB PO SCH (05:14)
[2021-01-05 06:23] LABS: Basophils # (auto) 0.02 K/uL (0-0.2); Basophils % (auto) 0.1 %; Eosinophils # (auto) 0.32 K/uL (0-0.5); Eosinophils % (auto) 2.3 %; Hematocrit (blood only) 28.5 % (37-47); Hemoglobin 9.4 g/dL (12.0-16.0); Immature Granulocytes # (auto) 0.07 K/uL (0.00-0.02); Immature Granulocytes % (auto) 0.5 %; Lymphocytes # (auto) 1.83 K/uL (1.2-3.4); Lymphocytes % (auto) 13.2 %; Mean Corpuscular Hemoglobin 29.6 pg (25-34); Mean Corpuscular Volume 89.6 fL (80-100); Mean Platelet Volume 10.2 fL (7.4-10.4); Monocytes # (auto) 0.89 K/uL (0.11-0.59); Monocytes % (auto) 6.4 %; Neutrophils # (auto) 10.73 K/uL (1.4-6.5); Neutrophils % (auto) 77.5 %; Nucleated RBC # (auto) 0.05 K/uL (0-0); Nucleated RBC % (auto) 0.4 %; Platelet Count 192 K/uL (130-400); RDW Coefficient of Variation 12.7 % (11.5-14.5); RDW Standard Deviation 40.6 fL (36.4-46.3); Red Blood Count 3.18 M/uL (4.2-5.4); White Blood Count 13.86 K/uL (4.8-10.8)
--- NOTE | 2021-01-05 07:59 | Obstetrical Progress Note ---
Date of Service January 05, 2021 Assessment & Plan (1) delivery delivered: c/sec day #2 Pt doing well d/c home with instrcutions Subjective Ambulation: ambulating normally Voiding: no voiding problems Passing Gas:: Yes Diet Tolerance:: clear liquids Lochia:: Small Feeding Type:: breast feeding Review of Systems All systems reviewed & are unremarkable except as noted in HPI & below Physical Exam Constitutional WD/WN, vitals as above well developed and well nourished Eyes PERRL, conjunctivae normal, anicteric sclerae ENMT external ear and nose normal, oropharynx normal Neck trachea midline, no thyromegaly Respiratory normal respiratory effort, lungs clear to auscultation Cardiovascular RRR, no murmur, no edema Chest (Breasts) normal inspection/palpation of breasts Gastrointestinal (Abdomen) normal bowel sounds, soft, nontender, no hepatosplenomegaly Musculoskeletal no cyanosis or clubbing, extremities motor strength 5/5 Skin no rashes, warm and dry + incision (Clean,dry and intact) Neurologic patellar DTR's 2+ bilat, sensation intact Psychiatric A+Ox3, euthymic affect Genitourinary normal external appearance Lymphatic no cervical or axillary lymphadenopathy Results & Data ([facility]) Vital Signs (Past 12 Hours) Vital Signs Temp Pulse Resp BP Pulse Ox 01/05/21 04:00 36.6 C 68 18 137/87 96 01/04/21 23:45 36.6 C 68 18 142/93 H 95 01/04/21 20:15 36.8 C 98 H 18 137/90 98
[2021-01-05] MEDS: FERROUS SULFATE 325 MG TAB PO SCH (08:54)
[2021-01-05] MEDS: SIMETHICONE 80 MG CHEW PO SCH (08:54)
[2021-01-05] MEDS: SERTRALINE HCL 50 MG TABLET PO SCH (08:54)
[2021-01-05] MEDS: PRENATAL VITAMIN 1 TAB PO SCH (08:54)
[2021-01-05] MEDS: AMOXICILLIN/CLAVULANATE 875 MG TAB PO SCH (08:55)
[2021-01-05] MEDS: DOCUSATE SODIUM 100 MG CAP PO SCH (08:56)
--- NOTE | 2021-01-05 09:39 | Anesthesiology Progress Note ---
Date of Service January 05, 2021 Anesthesia Post Procedure Vital Signs Vital Signs: Temp Pulse Resp BP Pulse Ox 01/05/21 04:00 36.6 C 68 18 137/87 96 01/04/21 23:45 36.6 C 68 18 142/93 H 95 01/04/21 20:15 36.8 C 98 H 18 137/90 98 01/04/21 16:30 36.8 C 85 18 140/79 01/04/21 13:00 36.4 C L 83 18 142/85 H Pain Intensity Left Abdomen: Pain Intensity: 2 Lower Abdomen: Pain Intensity: 2 Transfer of Care Handoff Completed per policy Notes Mental Status: alert / awake / arousable Patient Amnestic to Procedure: Yes Nausea / Vomiting: adequately controlled Pain: adequately controlled Airway Patency, RR, SpO2: stable & adequate BP & HR: stable & adequate Hydration State: stable & adequate Neuraxial Anesthesia: was administered and sensory block resolved Anesthetic Complications: no major complications apparent and Pt Satisfied with anesthetic care
--- NOTE | 2021-01-05 15:30 | Discharge Summary (DS) ---
DATE OF ADMISSION: 01/01/2021. DATE OF DISCHARGE: 01/05/2021. CHIEF COMPLAINT: This is a 25-year-old G1, P0 who was admitted at 37 weeks and 2 days on 01/01/2021 for induction of labor because of gestational hypertension. The patient's induction involved cervica l ripening and Pitocin. The patient went on and became fully dilated on 01/03/2021. The patient pus hed for a couple of hours with no change in descent. The patient was diagnosed with cephalopel nury disproportion and maternal exhaustion in addition to no change in descent. The patient und erwent section on 01/03/2021. Details of surgery is in the surgical note. The patient met all milestones postop and in recovery. Postoperative course has been unremarkable. T cinthia, she has been discharged home in stable condition. PAST MEDICAL HISTORY: None. PAST SURGICAL HISTORY: Dental procedure. FAMILY HISTORY: Noncontributory. SOCIAL HISTORY: The patient denies any drug, alcohol or tobacco use. PHYSICAL EXAMINATION: VITAL SIGNS: Today on 01/05/2021 patient's blood pressure is 137/87, pulse of 67, respirations 18, t emperature 36.6. HEART: S1 and S2, regular rhythm and rate. LUNGS: Clear to auscultation bilaterally. ABDOMEN: Nontender, nondistended, positive bowel sounds. Incision was clean, dry and intact. CONDITION ON DISCHARGE: Stable. OPERATIONS: Primary section. DISCHARGE DIAGNOSES: 1. Primary section. 2. Chorioamnionitis. PLAN ON DISCHARGE: The patient is discharged home with instructions regarding activity, diet, follow up appointment and medications. Job ID: [id number]
== END 2021-01-05 11:36 | disposition home or self-care (01) | DRG 786 ==
LOC: 4S1 07:55 → 4S2 01-03 08:25
DX: O65.4 Obstructed labor due to fetopelvic disproportion, unspecified; O41.1231 Chorioamnionitis, third trimester, fetus 1; Z37.0 Single live birth; O63.1 Prolonged second stage (of labor); O13.4 Gestational [pregnancy-induced] hypertension without significant proteinuria, complicating childbirth; O75.81 Maternal exhaustion complicating labor and delivery; Z3A.37 37 weeks gestation of pregnancy

== ENCOUNTER 2024-07-07 05:37 | Inpatient (IN) ==
--- NOTE | 2024-06-23 11:37 | Anesthesiology Consultation ---
Date of Service June 23, 2024 Assessment & Plan (1) Encounter for pre-operative examination: Chart Review Chart Review: Acceptable Risk for Surgery and Patient NOT seen in Pre Admission Testing Infectious Disease screening: Per PAT nursing assessment on 06/23/24, No known infectious disease contacts in past 10 days or current infectious disease symptoms. No recent travel outside the country. History Surgery Operation Date: 07/07/24 07:30 Proposed Procedures p Repeat Section, - Leif Valdze MD s With Bilateral Salpingectomy - Leif Valdez MD Height/Weight Height: 5 ft 3 in Weight: 75.296 kg Allergies Allergy/AdvReac Type Severity Reaction Status Date / Time No Known Allergies Allergy Verified 06/23/24 09:58 Medications Home Medications Medication Instructions Recorded Confirmed Last Taken prenat.vits,elizabeth,[id number] 1 tab PO DAILY 01/01/21 06/23/24 Unknown sertraline 50 mg tablet (Zoloft) 50 mg PO QAM 01/01/21 06/23/24 01/01/21 07:00 aspirin 81 mg tablet,delayed 81 mg PO DAILY 06/23/24 06/23/24 Unknown release Past Medical History Medical History (Updated 06/23/24 @ 11:45 by Lissett Stevens PA-C) Anxiety History of anesthesia reaction pt reports 'very itchy' after previous c/s (nothing documented per chart review) History of COVID- (2022) History of pre-eclampsia presumably reason for [id number] Past Surgical History Surgical History (Updated 06/23/24 @ 11:45 by Lissett Stevens PA-C) History of 01/03/21: epidural dosed in OR; no issues [place] teeth removed Social History Smoking Status: Never smoker Do You Dip or Chew Tobacco: No Hx Substance Use: No substance use type: does not use
[2024-07-07] MEDS: ACETAMINOPHEN 500 MG TAB PO SCH (06:00)
[2024-07-07] MEDS: LACTATED RINGER'S 1,000 ML IV SCH ×3 (06:00→10:59)
[2024-07-07 06:25] LABS: Basophils # (auto) 0.04 K/uL (0.00-0.20); Basophils % (auto) 0.3 %; Eosinophils # (auto) 0.12 K/uL (0.00-0.50); Eosinophils % (auto) 0.9 %; Hematocrit (blood only) 35.8 % (37.0-47.0); Hemoglobin 12.1 g/dl (12.0-16.0); Immature Granulocytes % (auto) 1.6 %; Lymphocytes # (auto) 2.11 K/uL (1.20-3.40); Lymphocytes % (auto) 16.5 %; Mean Corpuscular Hemoglobin 28.1 pg (25.0-34.0); Mean Corpuscular Hgb Conc 33.8 g/dL (32.0-36.0); Mean Corpuscular Volume 83.1 fL (80.0-100.0); Mean Platelet Volume 10.1 fL (9.4-12.4); Monocytes # (auto) 1.15 K/uL (0.11-0.59); Neutrophils # (auto) 9.18 K/uL (1.40-6.50); Neutrophils % (auto) 71.7 %; Platelet Count 231 K/uL (130-400); RDW Coefficient of Variation 12.1 % (11.5-14.5); RDW Standard Deviation 36.9 fL (36.4-46.3); Red Blood Count 4.31 M/uL (4.20-5.40)
[2024-07-07] MEDS: CITRIC ACID/SODIUM CITRATE 15 ML UDC PO SCH (07:28)
[2024-07-07] MEDS: ceFAZolin 2000MG 2,000 MG/15 ML SYR IV SCH (07:48)
[2024-07-07] MEDS ORDERED: MoRPHine SULFATE PF 1 MG/ML 10 ML AMP/VIAL ONE (07:50)
[2024-07-07] MEDS ORDERED: PHENYLEPHRINE HCL 25 MG/250 ML NSS IV ONE (07:50)
--- NOTE | 2024-07-07 07:54 | History & Physical Report ---
Date of Service July 07, 2024 Assessment & Plan (1) Encounter for pre-operative examination: (2) Encounter for sterilization: Admission and Anticipated Discharge Date Admission Date: July 07, 2024 History of Present Illness Chief Complaint: repeat and tubal Primary Care Provider: ABIGAIL PCP 29 F P1001 at 39weeks presents to L&D for repeat and voluntary sterilization. Allergies Allergy/AdvReac Type Severity Reaction Status Date / Time No Known Allergies Allergy Verified 06/23/24 09:58 Home Medications Medication Instructions Recorded Confirmed Type prenat.vits,elizabeth,[id number] 1 tab PO DAILY 01/01/21 06/23/24 History sertraline 50 mg tablet (Zoloft) 50 mg PO QAM 01/01/21 06/23/24 History aspirin 81 mg tablet,delayed 81 mg PO DAILY 06/23/24 06/23/24 History release Patient History Medical History History of COVID-19 (2022) History of anesthesia reaction pt reports 'very itchy' after previous c/s (nothing documented per chart review) Anxiety History of pre-eclampsia presumably reason for [id number] Surgical History History of 01/03/21: epidural dosed in OR; no issues [place] teeth removed Social History Smoking Status: Never smoker Do You Dip or Chew Tobacco: No; Hx Alcohol Use: No Hx Substance Use: No Preferred Language: [place] Communication Ability: Effective Rehabilitation Specialist Required: No Beliefs That Will Affect Care: None marital status: Current Living Situation: Spouse and Family Other Information That Helps Us Care for You: No Feels Safe at Home: Yes Safety Concerns: Feels Safe At This Time Assistive Devices: Contacts and Glasses OB History x1 with pre-eclampsia OPERATIONS PROFESSIONAL History neg Review of Systems All systems reviewed & are unremarkable except as noted in HPI & below Physical Exam Constitutional: WD/WN, vitals as above Eyes: PERRL, conjunctivae normal, anicteric sclerae Respiratory: normal respiratory effort, lungs clear to auscultation Gastrointestinal (Abdomen): Inspection/Auscultation: abdomen normal to inspection Musculoskeletal: Extremities: extremities normal to inspection Skin: no rashes, warm and dry Neurologic: patellar DTR's 2+ bilat, sensation intact Psychiatric: A+Ox3, euthymic affect Genitourinary: OB Exam Monitor Tracing: + external FHT monitor used, + external uterine monitor used, + category I and + normal FHT variability Results & Data Vital Signs (Past 12 Hours) Vital Signs Temp Pulse Resp BP Pulse Ox 07/07/24 07:44 83 99 07/07/24 07:39 76 100 07/07/24 07:34 80 100 07/07/24 07:29 82 100 07/07/24 07:25 73 119/76 07/07/24 07:24 77 100 07/07/24 05:47 36.7 C 20 07/07/24 05:46 73 119/78 Laboratory Results Laboratory Results - last 48 hr 07/07/24 06:03 WBC 12.80 H RBC 4.31 Hgb 12.1 Hct 35.8 L MCV 83.1 MCH 28.1 MCHC 33.8 RDW Std Deviation 36.9 RDW Coeff of Surjit 12.1 Plt Count 231 MPV 10.1 Immature Gran % (Auto) 1.6 Neut % (Auto) 71.7 Lymph % (Auto) 16.5 [place] % (Auto) 9.0 Eos % (Auto) 0.9 Baso % (Auto) 0.3 Neut # (Auto) 9.18 H Lymph # (Auto) 2.11 [place] # (Auto) 1.15 H Eos # (Auto) 0.12 Baso # (Auto) 0.04 Immature Gran # (Auto) 0.20 Blood Type B Positive Antibody Screen NEGATIVE Monitoring External Monitor Cat 1
[2024-07-07] MEDS ORDERED: OXYTOCIN 10 UNITS/ML VIAL ONE ×2 (08:29→08:30)
[2024-07-07] MEDS ORDERED: NALOXONE HCL 0.4 MG/1 ML VIAL/CARP IV PRN (08:51)
[2024-07-07] MEDS ORDERED: HYDROmorphone INJ 0.5 MG/0.5 ML SYR IV PRN (08:51)
[2024-07-07] MEDS ORDERED: KETOROLAC 30 MG/ML VIAL IV PRN (08:51)
[2024-07-07] MEDS ORDERED: MEPERIDINE HCL 25 MG/ML CARP/VIAL IV PRN (08:51)
[2024-07-07] MEDS ORDERED: ePHEDrine sulfate 50 MG/ML AMP IV PRN (08:51)
[2024-07-07] MEDS ORDERED: oxyCODONE HCL IR 5 MG TAB (IMMEDIATE RELEASE) PO PRN (08:51)
[2024-07-07] MEDS ORDERED: ACETAMINOPHEN 1,000 MG/100 ML VIAL IV PRN (08:51)
[2024-07-07] MEDS ORDERED: MoRPHine SULFATE 2 MG/ML CARP IV PRN (08:51)
[2024-07-07] MEDS ORDERED: SENNA 8.6 MG TAB PO PRN (08:58)
[2024-07-07] MEDS ORDERED: CALCIUM CARBONATE 500 MG CHEWABLE TAB PO PRN (08:58)
[2024-07-07] MEDS ORDERED: BENZOCAINE 20% SPRY 85 APPLN/85 GM CAN EXT PRN (08:58)
[2024-07-07] MEDS ORDERED: MAGNESIUM HYDROXIDE SUSP 30 ML UDC PO PRN (08:58)
[2024-07-07] MEDS ORDERED: HYDROCORTISONE ACETATE 25 MG SUPP PR PRN (08:58)
[2024-07-07] MEDS ORDERED: NO NARCOTICS OR SEDATIVES SCH (09:00)
[2024-07-07] MEDS ORDERED: DC INTRASPINAL MORPHINE SCH (09:00)
[2024-07-07] MEDS: MoRPHine SULFATE PF 1 MG/ML 10 ML AMP/VIAL INT SPINAL ONE (09:36)
[2024-07-07] MEDS: ONDANSETRON INJ 2 MG/ML 2 ML VIAL IV PRN (09:37)
[2024-07-07] MEDS: KETOROLAC 30 MG/ML VIAL IV SCH (09:39)
--- NOTE | 2024-07-07 09:39 | Post Operative Brief Note ---
Immediate Post Op Note Date of Surgery July 07, 2024 Pre & Post Diagnosis Operation Date: 07/07/24 07:30 Pre-Op Diagnosis: Elective Repeat Caesarean Section; Voluntary Sterilization Procedure Post-Op Diagnosis: Same;Delivery of a live female child at 0828 I identified the patient and participated in the time-out.: Yes Procedure Operation Date: 07/07/24 07:30 Actual Procedures p Repeat Section - Leif Valdez MD s with Bilateral Salpingectomy - Leif Valdez MD Surgeon Leif Valdez MD [employer] Machine Operator Karis PLATA Estimated Blood Loss 340 (QBL) Findings Consistent with Post-Op Diagnosis live female Apgars 8/9 weight pending Fluids LR 900 ml Specimens placenta right and left fallopian tubes Drains Parker Catheter Complications none Disposition Accompanied Patient To Recovery: Yes Overlapping Procedure I was present for: the critical portions of procedure. I was immediately available: during the entire case. Back up surgeon: was not required during procedure.
[2024-07-07] MEDS: SODIUM CHLORIDE 0.9% 1,000 ML IV SCH (10:59)
[2024-07-07] MEDS: PROMETHAZINE 6.25 MG/50.25 ML BAG IV PRN (11:08)
[2024-07-07] MEDS: OXYTOCIN 20 UNITS/LR 1,002 ML IV SCH (11:12)
--- NOTE | 2024-07-07 12:05 | Anesthesiology Progress Note ---
Date of Service July 07, 2024 Anesthesia Post Procedure Vital Signs Vital Signs: Temp Pulse Resp BP Pulse Ox 07/07/24 11:58 77 99 07/07/24 11:53 72 98 07/07/24 11:48 71 97 07/07/24 11:45 73 118/56 L 07/07/24 11:43 86 99 07/07/24 11:38 60 98 07/07/24 11:33 65 96 07/07/24 11:30 61 93 07/07/24 11:28 66 97 07/07/24 11:25 68 123/74 07/07/24 11:23 73 98 07/07/24 11:18 69 98 07/07/24 11:15 72 92 07/07/24 11:13 73 98 07/07/24 11:08 65 98 07/07/24 11:05 60 115/55 L 07/07/24 11:03 61 100 07/07/24 10:58 62 98 07/07/24 10:53 64 98 07/07/24 10:48 67 93 07/07/24 10:43 73 95 07/07/24 10:38 82 99 07/07/24 10:33 67 97 07/07/24 10:28 67 99 07/07/24 10:23 96 07/07/24 10:23 72 07/07/24 10:23 66 116/68 07/07/24 10:18 71 99 07/07/24 10:14 75 114/62 07/07/24 10:13 36.4 C L 75 14 114/62 07/07/24 10:13 75 96 07/07/24 10:07 74 98 07/07/24 10:03 68 118/56 L 07/07/24 10:02 75 96 07/07/24 10:01 75 93 07/07/24 09:57 76 99 07/07/24 09:53 81 126/83 07/07/24 09:52 74 98 07/07/24 09:47 73 98 07/07/24 09:43 68 109/65 07/07/24 09:42 71 98 07/07/24 09:37 78 99 07/07/24 09:33 79 120/67 07/07/24 09:32 91 H 99 07/07/24 09:29 81 133/72 07/07/24 09:27 77 100 07/07/24 09:23 61 103/65 07/07/24 09:22 68 98 07/07/24 09:17 67 99 07/07/24 09:13 36.4 C L 81 126/83 07/07/24 09:13 76 112/67 07/07/24 09:12 74 100 07/07/24 07:49 87 100 07/07/24 07:44 83 99 07/07/24 07:39 76 100 07/07/24 07:34 80 100 07/07/24 07:29 82 100 07/07/24 07:25 73 119/76 07/07/24 07:24 77 100 07/07/24 05:47 36.7 C 20 07/07/24 05:46 73 119/78 Transfer of Care Handoff Completed per policy Notes Mental Status: alert / awake / arousable and participated in evaluation Nausea / Vomiting: adequately controlled Pain: adequately controlled Airway Patency, RR, SpO2: stable & adequate BP & HR: stable & adequate Hydration State: stable & adequate Neuraxial Anesthesia: was administered and sensory block is resolving Anesthetic Complications: no major complications apparent and Pt Satisfied with anesthetic care
[2024-07-07] MEDS: diphenhydrAMINE 50 MG/ML VIAL IV PRN (12:17)
[2024-07-07] MEDS: SIMETHICONE 80 MG CHEW PO SCH (12:19)
--- NOTE | 2024-07-07 12:47 | Operative Report ---
Post Operative Report Pre & Post Diagnosis Operation Date: 07/07/24 07:30 Pre-Op Diagnosis: Elective Repeat Caesarean Section; Voluntary Sterilization Procedure Post-Op Diagnosis: Same;Delivery of a live female child at 0828 I identified the patient and participated in the time-out.: Yes Procedure Operation Date: 07/07/24 07:30 Actual Procedures p Repeat Section - Leif Valdez MD s with Bilateral Salpingectomy - Leif Valdez MD Surgeon Leif Valdez MD Project Associate Karis PLATA Quantitative Blood Loss (QBL) 340 Findings Consistent with Post-Op Diagnosis live female Apgars 8/9 weight 6-12 Fluids LR 900 ml Specimens placent right and left fallopian tubes Drains none Anesthesia Type Spinal Complications none Disposition Accompanied Patient To Recovery: Yes Indications elective repeat voluntary sterilization Description of Procedure Under satisfactory spinal anesthesia the patient was prepped draped in usual sterile fashion. A timeout was called after the patient was identified. Antib iotics were given preop. Low Pfannenstiel incision through her prior scar was then made entering into the abdominal cavity in successive layers without difficulty. Upon entering into the abdominal cavity the peritoneum was opened and the bladder flap was then developed with sharp dissection using Metzenbaum scissors. The bladder blade was then reentered a low segment transverse incision over the lower uterine segment was made the incision was extended in the AP diameter the amniotic sac was then nicked with Allis clamp. The fluid was noted to be clear and the infant was then delivered from the vertex presentation with the aid of fundal pressure. Delivery was accomplished without difficulty delivering a live female there was a delay of cord clamping for 1 minute the cord was clamped and cut delivering a live baby with Apgars of 8 and 9 weight was noted to be 6 pounds 12 ounces. Cord blood was then obtained placenta was then delivered spontaneously and intact. The specimen was submitted to pathology as a separate specimen. The uterus was then exteriorized reports that from then placed on both ankles the uterus was then closed in dub layer closure with 0 Vicryl suture in a continuous interlocking fashion followed by second number cutting suture of 0 Vicryl suture. Patient desired a elective sterilization procedure she agreed once more that this was to be undertaken. Both tubes were serially grasped with a Mary clamp and then using the small hand-held LigaSure device the tubes were then removed first the right than the left. These were then submitted to pathology. Tubes and ovaries looked unremarkable. The uterus was then placed back into the normal anatomical position. The fascia was then reapproximated using 0 Vicryl suture in a continuous fashion. Subcuticular space was then closed with 3-0 plain suture interrupted. The skin was then reapproximated with 4-0 Monocryl suture. Steri- Strips were then applied along with Telfa and ABD dressing. The final sponge needle instrument counts were found to be correct the total blood loss was 340 mL total fluids 900 mL and urine output was 75 mL the patient being stable she was placed plantar stretcher and taken to recovery room in stable condition end of dictation thank you I attest to the content of the Intraoperative Record and any orders documented therein. Any exceptions are noted below. Please note that Karis Escudero was needed to provide assistance at delivery, retraction, closure of uterus and abdomen.
[2024-07-07] MEDS: NALBUPHINE HCL INJ 10 MG/ML AMP IV PRN (13:10)
[2024-07-07] MEDS: diphenhydrAMINE 50 MG/ML VIAL IV STA (14:31)
[2024-07-07] MEDS: ACETAMINOPHEN 325 MG TAB PO SCH (14:31)
[2024-07-07] MEDS: DOCUSATE SODIUM 100 MG CAP PO SCH (20:14)
[2024-07-07] MEDS: NALOXONE HCL 1 MG in SODIUM CHLORIDE 0.9% 1,000 ML IV PRN (21:09)
[2024-07-08] MEDS: NALOXONE HCL 0.08 MG in SYRINGE 1.8 ML IV PRN (00:53)
[2024-07-08] MEDS ORDERED: diphenhydrAMINE 50 MG/ML VIAL IV PRN (02:51)
[2024-07-08] MEDS ORDERED: diphenhydrAMINE Capsule 25 MG CAP PO PRN (02:51)
[2024-07-08] MEDS ORDERED: PROMETHAZINE 12.5 MG/50.5 ML BAG IV PRN (02:51)
[2024-07-08] MEDS ORDERED: ONDANSETRON INJ 2 MG/ML 2 ML VIAL IV PRN (02:51)
[2024-07-08] MEDS ORDERED: HYDROmorphone INJ 0.5 MG/0.5 ML SYR IV PRN (02:51)
[2024-07-08 06:11] LABS: Basophils # (auto) 0.05 K/uL (0.00-0.20); Basophils % (auto) 0.3 %; Eosinophils # (auto) 0.18 K/uL (0.00-0.50); Eosinophils % (auto) 1.2 %; Hematocrit (blood only) 32.6 % (37.0-47.0); Hemoglobin 10.9 g/dl (12.0-16.0); Immature Granulocytes # (auto) 0.17 K/uL (0.01-0.20); Immature Granulocytes % (auto) 1.1 %; Lymphocytes % (auto) 10.1 %; Mean Corpuscular Hemoglobin 28.2 pg (25.0-34.0); Mean Corpuscular Hgb Conc 33.4 g/dL (32.0-36.0); Mean Corpuscular Volume 84.5 fL (80.0-100.0); Mean Platelet Volume 9.8 fL (9.4-12.4); Monocytes # (auto) 1.16 K/uL (0.11-0.59); Monocytes % (auto) 7.8 %; Neutrophils # (auto) 11.86 K/uL (1.40-6.50); Neutrophils % (auto) 79.5 %; Platelet Count 189 K/uL (130-400); RDW Coefficient of Variation 12.3 % (11.5-14.5); RDW Standard Deviation 37.2 fL (36.4-46.3); Red Blood Count 3.86 M/uL (4.20-5.40); White Blood Count 14.92 K/ul (4.8-10.8)
--- NOTE | 2024-07-08 08:35 | Obstetrical Progress Note ---
Date of Service July 08, 2024 Assessment & Plan Admission and Anticipated Discharge Date Admission Date: July 07, 2024 Subjective abdomen soft and non tender bandage removed incision is clean and dry bowel sounds present no calf tenderness ambulating well vaginal bleeding scant hgb 10.9 Results & Data Vital Signs (Past 12 Hours) Vital Signs Temp Pulse Resp BP Pulse Ox O2 Del Method 07/08/24 02:40 83 18 120/85 99 Room Air 07/08/24 00:00 36.6 C 77 16 117/74 97 Room Air 07/07/24 23:00 16 98 07/07/24 22:00 18 97 07/07/24 21:00 16 98
[2024-07-08] MEDS: PRENATAL VITAMIN 1 TAB PO SCH (08:36)
[2024-07-08] MEDS: FERROUS SULFATE 325 MG TAB PO SCH (08:36)
[2024-07-08] MEDS: SERTRALINE HCL 50 MG TABLET PO SCH (08:37)
[2024-07-08] MEDS ORDERED: KETOROLAC 30 MG/ML VIAL IV PRN (08:58)
[2024-07-08] MEDS: IBUPROFEN 600 MG TAB PO SCH (09:11)
[2024-07-08] MEDS: oxyCODONE HCL IR 5 MG TAB (IMMEDIATE RELEASE) PO PRN (14:40)
[2024-07-08 16:55] VITALS: O2SAT 98
[2024-07-08] MEDS: bisacodyL 5 MG TABEC PO SCH (20:35)
[2024-07-09 00:48] VITALS: RESP 16
[2024-07-09 08:06] LABS: Hematocrit (blood only) 33.5 % (37.0-47.0)
--- NOTE | 2024-07-09 08:48 | Obstetrical Progress Note ---
Date of Service July 09, 2024 Subjective Ambulation: ambulating normally Voiding: no voiding problems Passing Gas:: Yes Diet Tolerance:: regular diet Feeding Type:: bottle feeding Current Pain Level(1-10): 0 doing well. plans for d/c today. Physical Exam Constitutional WD/WN, vitals as above Gastrointestinal (Abdomen) Inspection/Auscultation: abdomen normal to inspection incision c/d/i abdomen soft and non-tender. fundus firm below U. Musculoskeletal Extremities: extremities normal to inspection Skin no rashes, warm and dry Neurologic patellar DTR's 2+ bilat, sensation intact Psychiatric A+Ox3, euthymic affect Results & Data Vital Signs (Past 12 Hours) Vital Signs Temp Pulse Resp BP Pulse Ox O2 Del Method 07/08/24 23:45 36.5 C 72 16 118/79 98 Room Air Laboratory Results 07/07/24 07/08/24 07/09/24 06:03 05:53 07:48 WBC 12.80 H 14.92 H RBC 4.31 3.86 L Hgb 12.1 10.9 L 11.0 L Hct 35.8 L 32.6 L 33.5 L MCV 83.1 84.5 MCH 28.1 28.2 MCHC 33.8 33.4 RDW Std Deviation 36.9 37.2 RDW Coeff of Surjit 12.1 12.3 Plt Count 231 189 MPV 10.1 9.8 Immature Gran % (Auto) 1.6 1.1 Neut % (Auto) 71.7 79.5 Lymph % (Auto) 16.5 10.1 [place] % (Auto) 9.0 7.8 Eos % (Auto) 0.9 1.2 Baso % (Auto) 0.3 0.3 Neut # (Auto) 9.18 H 11.86 H Lymph # (Auto) 2.11 1.50 [place] # (Auto) 1.15 H 1.16 H Eos # (Auto) 0.12 0.18 Baso # (Auto) 0.04 0.05 Immature Gran # (Auto) 0.20 0.17 Treponema pallidum Ab Negative Blood Type B Positive Antibody Screen NEGATIVE
[2024-07-09 08:58] VITALS: BP 125/82; PULSE 80; TEMP 97.5
[2024-07-09] MEDS ORDERED: bisacodyL 10 MG SUPP PR PRN (08:58)
[2024-07-09] MEDS: IBUPROFEN 600 MG TAB PO PRN (09:02)
[2024-07-09] MEDS ORDERED: ACETAMINOPHEN 325 MG TAB PO PRN (14:58)
== END 2024-07-09 10:30 | disposition home or self-care (01) | DRG 785 ==
LOC: 4S1 05:37 → EDSTATUS 07:30 → MERGE 07:30 → 4E2 12:16
PROC: M.PPTLD (2024-07-07 07:30)
DX: Z87.59 Personal history of other complications of pregnancy, childbirth and the puerperium; Z37.0 Single live birth; O34.211 Maternal care for low transverse scar from previous cesarean delivery; Z30.2 Encounter for sterilization; Z3A.39 39 weeks gestation of pregnancy